=== PATIENT | female | born 1955 | race Caucasian/White ===

== ENCOUNTER 2016-12-20 19:05 | Inpatient (IN) | payer OTHER ==
[~2016-12-20] VITALS: Ht 175.3 cm; Wt 72.1 kg
[2016-12-20] VITALS (9 sets, daily range): BP systolic 131–181; BP diastolic 76–103; PULSE 107–120; RESP 16–20; TEMP 98.6–99.1; O2SAT 93–97
[2016-12-20] MEDS ORDERED: SODIUM CHLORIDE 0.9% FLUSH 5 ML FLUSH IVF PRN ×2 (19:30→21:30)
[2016-12-20 19:43] LABS: AUTOMATED NEUTROPHIL # 12.5 TH/MM3 (1.8-7.7); BASOPHIL # 0.1 TH/MM3 (0-0.2); BASOPHIL % 0.4 % (0.0-2.0); EOSINOPHIL % 0.1 % (0.0-4.0); HEMATOCRIT 41.8 % (35.0-46.0); HEMO FLAGS DIFF FINAL; LYMPH % 10.1 % (9.0-44.0); LYMPHOCYTE # 1.6 TH/MM3 (1.0-4.8); MEAN CELL VOLUME 89.2 FL (80.0-100.0); MEAN CORPUSCULAR HGB CONC 33.6 % (32.0-36.0); MONO % 7.9 % (0.0-8.0); NEUT % 81.5 % (16.0-70.0); PLATELET COUNT 311 TH/MM3 (150-450); RED BLOOD COUNT 4.69 MIL/MM3 (4.00-5.30); RED CELL DISTRIBUTION WIDTH 13.4 % (11.6-17.2); WHITE BLOOD COUNT 15.4 TH/MM3 (4.0-11.0)
[2016-12-20] MEDS ORDERED: ASPIRIN 325 MG TAB PO ONE (19:45)
[2016-12-20] MEDS ORDERED: NITROGLYCERIN 2% OINT 1 GM PACKET TOP ONE (19:45)
[2016-12-20 19:50] LABS: APTT (PATIENT) 26.2 SEC (24.3-30.1); INTERNATIONAL NORMALIZED RATIO 0.9 RATIO; PROTHROMBIN TIME - PATIENT 10.4 SEC (9.8-11.6)
[2016-12-20] MEDS ORDERED: SODIUM CHLORID 0.9% 500 ML INJ 500 ML IV ONE (20:00)
--- NOTE | 2016-12-20 20:12 | RADRPT ---
EXAM DATE/TIME: 12/20/2016 19:45 [facility] COMPARISON: No previous studies available for comparison. INDICATIONS : Chest pain. MEDICAL HISTORY : None. SURGICAL HISTORY : None. ENCOUNTER: Initial ACUITY: 1 day PAIN SCORE: 6/10 LOCATION: Bilateral chest FINDINGS: Sternotomy wires are noted. There are atelectatic changes at the bases but no consolidation or effusi on. Mild dextroscoliosis. Cardiomegaly. CONCLUSION: No acute disease. Marcelo Melgar MD on December 20, 2016 at 20:10 Board Certified Radiologist. This report was verified electronically.
--- NOTE | 2016-12-20 20:20 | PD ---
HPI Chief Complaint: chest pain Time Seen by Provider: 19:28 Travel History International Travel<30 days: No Contact w/Intl Traveler<30days: No Traveled to known affect area: No History of Present Illness HPI 61-year-old female presents with chest pain across her chest that started yesterday. She states she's had a little bit of a cough but denies other concurrent complaints. Quality is tightness. Severity is moderate. Pain is worse with deep breaths. She states it feels like her ribs are bruised even though she's never had that before. She states she is visiting from [place]. She states her last cardiac workup was about 4 years ago but she's not sure what she had other than she was watched in the hospital. She denies taking an aspirin at home. Quality is tightness. Severity is moderate. She denies modifying factors other than deep breaths and movement. Duration is since yesterday. PFSH Past Medical History Cardiovascular Problems: Yes (CABG x3) High Cholesterol: Yes Hypertension: Yes Tetanus Vaccination: Unknown Influenza Vaccination: No : 1 Para: 1 Past Surgical History Coronary Artery Bypass Graft: Yes (1998) Social History Alcohol Use: No Tobacco Use: No Substance Use: No Allergies-Medications (Allergen,Severity, Reaction): Coded Allergies: No Known Allergies (Unverified , 12/20/16) Reported Meds & Prescriptions Reported Meds & Active Scripts Active No Active Prescriptions or Reported Medications Review of Systems Except as stated in HPI: all other systems reviewed are Neg Physical Exam Narrative GENERAL: Well-nourished, well-developed patient. SKIN: Warm and dry. HEAD: Normocephalic and atraumatic. EYES: No injection or drainage. ENT: No nasal drainage noted. NECK: Supple, trachea midline. CARDIOVASCULAR: Tachycardic rate and regular rhythm RESPIRATORY: Breath sounds equal bilaterally. No accessory muscle use. GASTROINTESTINAL: Abdomen soft, non-tender, nondistended. EXTREMITIES: No edema. NEUROLOGICAL: Awake and alert. Motor and sensory grossly within normal limits. Normal speech. Data Data Last Documented VS Vital Signs Date Time Temp Pulse Resp B/P Pulse Ox O2 Delivery O2 Flow Rate FiO2 12/20/16 20:49 113 18 148/79 95 Room Air 12/20/16 19:06 98.6 Orders Electrocardiogram (12/20/16 19:25) Ckmb (Isoenzyme) Profile (12/20/16 19:25) Complete Blood Count With Diff (12/20/16 19:25) Comprehensive Metabolic Panel (12/20/16 19:25) Magnesium (Mg) (12/20/16 19:25) Prothrombin Time / Inr (Pt) (12/20/16 19:25) Act Partial Throm Time (Ptt) (12/20/16 19:25) Troponin I (12/20/16:25) Lipase (12/20/16:25) Chest, Single Ap (12/20/16 19:25) Ecg Monitoring (12/20/16:25) Bilateral Bp Monitoring (12/20/16:25) Iv Access Insert/Monitor (12/20/16:) Oximetry (12/20/16:25) Sodium Chloride 0.9% Flush (Ns Flush) (12/20/16 19:30) D-Dimer (12/20/16 19:30) Aspirin (Aspirin) (12/20/16 19:45) Nitroglycerin 2% Oint (Nitroglycerin 2% (12/20/16 19:45) Sodium Chlorid 0.9% 500 Ml Inj (Ns 500 M (12/20/16 20:00) Ct Pulmonary Angiogram (12/20/16 20:42) Iohexol 350 Inj (Omnipaque 350 Inj) (12/20/16 21:07) Heparin Infusion ISRAEL.Q1H (12/20/16 21:21) Heparin Inj (Heparin Inj) (12/20/16 21:30) Heparin Inj (Heparin Inj) (12/21/16 03:30) Heparin Inj (Heparin Inj) (12/21/16 03:30) Heparin-D5w Inj (Heparin-D5w Inj) (12/20/16 21:30) Cbc No Diff, Includes Plts (12/23/16 06:00) Act Partial Throm Time (Ptt) (12/21/16 04:21) Occult Blood (Hemoccult) Stool (12/20/16 21:21) Blood Culture (12/20/16 21:22) Sodium Chloride 0.9% Flush (Ns Flush) (12/20/16 21:30) Ceftriaxone Inj (Rocephin Inj) (12/20/16 21:30) Azithromycin Inj (Zithromax Inj) (12/20/16 21:30) Admit Order (Ed Use Only) (12/20/16 21:30) Labs Laboratory Tests Test 12/20/16 19:28 White Blood Count 15.4 TH/MM3 Red Blood Count 4.69 MIL/MM3 Hemoglobin 14.0 GM/DL Hematocrit 41.8 % Mean Corpuscular Volume 89.2 FL Mean Corpuscular Hemoglobin 30.0 PG Mean Corpuscular Hemoglobin 33.6 % Concent Red Cell Distribution Width 13.4 % Platelet Count 311 TH/MM3 Mean Platelet Volume 8.6 FL Neutrophils (%) (Auto) 81.5 % Lymphocytes (%) (Auto) 10.1 % Monocytes (%) (Auto) 7.9 % Eosinophils (%) (Auto) 0.1 % Basophils (%) (Auto) 0.4 % Neutrophils # (Auto) 12.5 TH/MM3 Lymphocytes # (Auto) 1.6 TH/MM3 Monocytes # (Auto) 1.2 TH/MM3 Eosinophils # (Auto) 0.0 TH/MM3 Basophils # (Auto) 0.1 TH/MM3 CBC Comment DIFF FINAL Differential Comment Prothrombin Time 10.4 SEC Prothromb Time International 0.9 RATIO Ratio Activated Partial 26.2 SEC Thromboplast Time D-Dimer Quantitative (PE/DVT) 2.69 MG/L FEU Sodium Level 136 MEQ/L Potassium Level 4.1 MEQ/L Chloride Level 99 MEQ/L Carbon Dioxide Level 26.5 MEQ/L Anion Gap 11 MEQ/L Blood Urea Nitrogen 11 MG/DL Creatinine 1.19 MG/DL Estimat Glomerular Filtration 46 ML/MIN Rate Random Glucose 112 MG/DL Calcium Level 9.0 MG/DL Magnesium Level 2.2 MG/DL Total Bilirubin 0.7 MG/DL Aspartate Amino Transf 23 U/L (AST/SGOT) Alanine Aminotransferase 19 U/L (ALT/SGPT) Alkaline Phosphatase 78 U/L Total Creatine Kinase 78 U/L Troponin I 0.02 NG/ML Total Protein 8.1 GM/DL Albumin 3.6 GM/DL Lipase 109 U/L MDM Medical Decision Making Medical Screen Exam Complete: Yes Emergency Medical Condition: Yes Medical Record Reviewed: Yes (past history confirmed) Interpretation(s) EKG is sinus tachycardia at 120, right bundle branch block, no STEMI criteria CBC & BMP Diagram 12/20/16 19:28 Last [address] Angiography 12/20/162041 Signed Impressions: Service Date/Time: Tuesday, December 20, 2016 20:55 - CONCLUSION: 1. Extensive bilateral pulmonary emboli are noted. 2. Patchy consolidation and small bilateral effusions. Marcelo Melgar MD Chest X-Ray 12/20/161924 Signed Impressions: Service Date/Time: Tuesday, December 20, 2016 19:45 - CONCLUSION: No acute disease. Marcelo Melgar MD Differential Diagnosis Cardiac, PE, musculoskeletal, gastritis Narrative Course Will check blood work, EKG, chest x-ray and dose with aspirin and nitroglycerin and reevaluate ed workup with extensive bilateral PEs, patient notes frequent traveling. DC nitroglycerin and order heparin and antibiotics for coverage of possible consolidation with elevated white count although this could be concurrent pulmonary infarct given history, patient updated Physician Communication Physician Communication dr hui agrees to admit in cic with heparin Diagnosis Primary Impression: Pulmonary embolism Qualified Code: I26.99 - Other acute pulmonary embolism without acute cor pulmonale Admitting Information Admitting Physician Requests: Admit Scripts No Active Prescriptions or Reported Meds Christin Henry MD Dec 20, 2016 20:20
[2016-12-20 20:29] LABS: ALKALINE PHOSPHATASE 78 U/L (45-117); ALT (GPT) 19 U/L (10-53); ANION GAP 11 MEQ/L (5-15); AST (GOT) 23 U/L (15-37); BICARBONATE 26.5 MEQ/L (21.0-32.0); BLOOD UREA NITROGEN 11 MG/DL (7-18); CHLORIDE 99 MEQ/L (98-107); GLOMERULAR FILTRATION RATE 46 ML/MIN (>89); MAGNESIUM 2.2 MG/DL (1.5-2.5); SODIUM (NA) 136 MEQ/L (136-145); TOTAL BILIRUBIN ADULT 0.7 MG/DL (0.2-1.0)
[2016-12-20 20:30] LABS: CREATINE KINASE 78 U/L (26-192); POTASSIUM 4.1 MEQ/L (3.5-5.1)
[2016-12-20] MEDS ORDERED: IOHEXOL 350 MG/ML 10 ML VIAL (for RAD DIAG) IV ONE (21:07)
--- NOTE | 2016-12-20 21:14 | RADRPT ---
EXAM DATE/TIME: 12/20/2016 20:55 [facility] COMPARISON: CHEST SINGLE AP, December 20, 2016, 19:45. INDICATIONS : Epigastric pain; rule out pulmonary embolus. IV CONTRAST: 74 cc Omnipaque 350 (iohexol) IV RADIATION DOSE: 10.97 CTDIvol (mGy) MEDICAL HISTORY : Hypertension. Hypercholesterolemia. Cardiovascular disease SURGICAL HISTORY : CABG ENCOUNTER: Initial ACUITY: 1 day PAIN SCALE: 5/10 LOCATION: chest TECHNIQUE: Volumetric scanning of the chest was performed using a pulmonary embolism protocol MIP images were re constructed. Using automated exposure control and adjustment of the mA and/or kV according to patien t size, radiation dose was kept as low as reasonably achievable to obtain optimal diagnostic quality images. FINDINGS: There are small bilateral pleural effusions and patchy consolidation within the lower lobes bilateral ly. Subcentimeter lymph nodes in the mediastinum and hilar regions are noted. There are filling defec ts within the left lower lobe and right lower lobe pulmonary arterial tree characteristic of bilatera l pulmonary emboli. There are thrombi also seen within the right upper lobe and left upper lobe pulmo nary arterial branches. Right middle lobe thrombus also present. Osseous structures are intact. CONCLUSION: 1. Extensive bilateral pulmonary emboli are noted. 2. Patchy consolidation and small bilateral effusions. Marcelo Melgar MD on December 20, 2016 at 21:11 Board Certified Radiologist. This report was verified electronically.
[2016-12-20] MEDS ORDERED: cefTRIAXone INJ 1,000 MG in SODIUM CHLORIDE 0.9% INJ 100 ML IV ONE (21:30)
[2016-12-20] MEDS ORDERED: HEPARIN SODIUM - IV 10,000 UNITS/10 ML VIAL IV ONE (21:30)
[2016-12-20] MEDS ORDERED: AZITHROMYCIN INJ 500 MG in SODIUM CHLOR 0.9% 250 ML INJ 250 ML IV ONE (21:30)
--- NOTE | 2016-12-20 21:36 | HHI.HP ---
[facility] Service [facility] ([place], [place])ists Primary Care Physician No Primary Care Physician Admission Diagnosis pe Diagnoses: (1) Pulmonary embolism Diagnosis: Principal (2) PNA (pneumonia) Diagnosis: Principal (3) Chest pain Diagnosis: Principal (4) Renal insufficiency Diagnosis: Principal Travel History International Travel<30 Days: No Contact w/Intl Traveler <30 Da: No Traveled to Known Affected Are: No History of Present Illness This is a 61-year-old female with a PMH of HTN, Hyperlipidemia and CAD s/p CABG who presented to the ER w/ complaints of chest pain x1 day w/ associated non- productive cough. Notes chest pain worse w/ inspiration. Denies fever, chills or sick contacts. No recent cardiac intervention, does not follow w/ Cardiology as outpatient. On arrival, BP 148/95, HR 120, O2 sat 94% on RA, Afebrile. WBC 15.4. Creatinine 1.19, no previous labs for comparison. Trop 0.02, EKG w/ no acute ischemia. D-dimer 2.69. CXR with no acute findings. CTA Pulm w/ extensive bilateral pulmonary emboli, patchy consolidation and small bilateral effusions. No h/o DVT/PE in the past. Does note recent travel to multiple cities via plane, visiting from [place]. No recent surgical intervention, no tobacco abuse. Started on Heparin gtt in ER. Review of Systems Except as stated in HPI: all other systems reviewed are Neg ROS: 14 point review of systems otherwise negative. Past Family Social History Past Medical History PMH: HTN, Hyperlipidemia and CAD s/p CABG Past Surgical History PAST SURGICAL HISTORY: CABG Allergies: Coded Allergies: No Known Allergies (Unverified , 12/20/16) Family History PAST FAMILY HISTORY: Reviewed. No h/o DM or CAD Social History PAST SOCIAL HISTORY: Negative for alcohol, tobacco or drugs. Physical Exam Vital Signs Vital Signs Date Time Temp Pulse Resp B/P Pulse Ox O2 Delivery O2 Flow Rate FiO2 12/20/16 20:49 113 18 148/79 95 Room Air 12/20/16 19:43 114 20 163/92 95 Room Air 12/20/16 19:27 115 12/20/16 19:25 118 18 166/79 97 Room Air 12/20/16 19:23 118 20 181/103 96 Room Air 12/20/16 19:18 18 12/20/16 19:06 98.6 120 16 148/95 94 Physical Exam PE: GENERAL: Pleasant middle-aged white female in no acute distress. HEENT: PERRLA, EOMI. No scleral icterus or conjunctival pallor. No lid lag or facial droop. CARDIOVASCULAR: Regular rate and rhythm. No obvious murmurs to auscultation. No chest tenderness to palpation. RESPIRATORY: No obvious rhonchi or wheezing. Clear to auscultation. Breath sounds equal bilaterally. GASTROINTESTINAL: Abdomen soft, non-tender, nondistended. BS normal. MUSCULOSKELETAL: Extremities without clubbing, cyanosis, or edema. No obvious deformities. NEUROLOGICAL: Awake, alert and oriented x4. No focal neurologic deficits. Moving both upper and lower extremities spontaneously. Laboratory Laboratory Tests Test 12/20/16 19:28 White Blood Count 15.4 Red Blood Count 4.69 Hemoglobin 14.0 Hematocrit 41.8 Mean Corpuscular Volume 89.2 Mean Corpuscular Hemoglobin 30.0 Mean Corpuscular Hemoglobin 33.6 Concent Red Cell Distribution Width 13.4 Platelet Count 311 Mean Platelet Volume 8.6 Neutrophils (%) (Auto) 81.5 Lymphocytes (%) (Auto) 10.1 Monocytes (%) (Auto) 7.9 Eosinophils (%) (Auto) 0.1 Basophils (%) (Auto) 0.4 Neutrophils # (Auto) 12.5 Lymphocytes # (Auto) 1.6 Monocytes # (Auto) 1.2 Eosinophils # (Auto) 0.0 Basophils # (Auto) 0.1 CBC Comment DIFF FINAL Differential Comment Prothrombin Time 10.4 Prothromb Time International 0.9 Ratio Activated Partial 26.2 Thromboplast Time D-Dimer Quantitative (PE/DVT) 2.69 Sodium Level 136 Potassium Level 4.1 Chloride Level 99 Carbon Dioxide Level 26.5 Anion Gap 11 Blood Urea Nitrogen 11 Creatinine 1.19 Estimat Glomerular Filtration 46 Rate Random Glucose 112 Calcium Level 9.0 Magnesium Level 2.2 Total Bilirubin 0.7 Aspartate Amino Transf 23 (AST/SGOT) Alanine Aminotransferase 19 (ALT/SGPT) Alkaline Phosphatase 78 Total Creatine Kinase 78 Troponin I 0.02 Total Protein 8.1 Albumin 3.6 Lipase 109 Result Diagram: 12/20/16192712/20/161927 Assessment and Plan Problem List: (1) Pulmonary embolism ICD Code: I26.99 Status: Acute (2) PNA (pneumonia) ICD Code: J18.9 Status: Acute (3) Chest pain ICD Code: R07.9 Status: Acute (4) Renal insufficiency ICD Code: N28.9 Status: Acute Assessment and Plan A/P: 1. Bilateral PE: c/o chest pain, non-productive cough x1 day, D-dimer elevated at 2.69, CXR w/ no acute findings, CTA Pulm w/ extensive bilateral PE, patchy consolidation and small bilateral effusions, images reviewed by me. Likely secondary to extensive travel recently, no other risk factors noted. Started on Heparin gtt in ER, will continue. Telemetry, DuoNeb prn/Symbicort for possible bronchospasm from PE, check Echo to eval for right hear strain. 2. PNA: CTA Pulm w/ bilateral patchy consolidation as above, s/p Rocephin/ Zithro in ER, will continue w/ IV Abx, repeat labs in am. 3. Chest Pain: Atypical. Pleuritic. Likely secondary to PNA/PE however h/o CAD, will r/o ACS. Initial trop negative, EKG w/ no acute ischemia. Check serial cardiac enzymes, NTG/Morphine prn. 4. Renal Insufficiency: Creatinine 1.19, no previous labs for comparison. Check U/a, IVF for hydration, repeat labs in am. 5. DVT Prophylaxis: Heparin gtt for acute PE 6. Social work for d/c planning as needed. 7. Case discussed w/ ER physician at length. Physician Certification 2 Midnight Certification Type: Admission for Inpatient Services Order for Inpatient Services The services are ordered in accordance with Medicare regulations or non- Medicare payer requirements, as applicable. In the case of services not specified as inpatient-only, they are appropriately provided as inpatient services in accordance with the 2-midnight benchmark. Estimated LOS (days): 2 days is the estimated time the patient will need to remain in the hospital, assuming treatment plan goals are met and no additional complications. Post-Hospital Plan: Not yet determined Problem Qualifiers (1) Pulmonary embolism: Qualified Code: I26.99 - Other acute pulmonary embolism without acute cor pulmonale Vanessa Shore MD Dec 20, 2016 21:36
[2016-12-20] MEDS: AZITHROMYCIN INJ 500 MG in SODIUM CHLOR 0.9% 250 ML INJ 250 ML IV SCH (21:41)
[2016-12-20] MEDS ORDERED: BISACODYL 10 MG SUPP PR PRN (21:45)
[2016-12-20] MEDS ORDERED: SODIUM CHLORIDE 0.9% FLUSH 5 ML FLUSH FLUSH PRN (21:45)
[2016-12-20] MEDS ORDERED: ACETAMINOPHEN 325 MG TAB PO PRN (21:45)
[2016-12-20] MEDS ORDERED: ONDANSETRON HCL 4 MG/2 ML VIAL IVP PRN (21:45)
[2016-12-20] MEDS ORDERED: RESP: ALBUTEROL 2.5 MG/IPRATROPIUM 0.5 MG NEB (PRN) NEB (21:45)
[2016-12-20] MEDS: MORPHINE SULFATE 4 MG/ML INJ IV PRN (22:15)
[2016-12-20] MEDS: ACETAMINOPHEN/HYDROcodone 325 MG/5 MG TAB PO PRN (22:16)
[2016-12-20] MEDS: BUDESONIDE-FORMOTEROL 160/4.5 MCG INHALER INH SCH (22:27)
[2016-12-20] MEDS: HEPARIN-D5W INJ 250 ML IV SCH (22:47)
[2016-12-21] VITALS (21 sets, daily range): BP systolic 126–144; BP diastolic 68–78; PULSE 92–115; RESP 20–30; TEMP 98–98.9; O2SAT 95–97
[2016-12-21] MEDS: ACETAMINOPHEN/HYDROcodone 325 MG/5 MG TAB PO PRN ×5 (02:26→22:08)
[2016-12-21] MEDS: MORPHINE SULFATE 4 MG/ML INJ IV PRN (02:32)
[2016-12-21] MEDS ORDERED: HEPARIN SODIUM - IV 10,000 UNITS/10 ML VIAL IV PRN (03:30)
[2016-12-21 06:16] LABS: AUTOMATED NEUTROPHIL # 12.7 TH/MM3 (1.8-7.7); BASOPHIL # 0.1 TH/MM3 (0-0.2); BASOPHIL % 0.5 % (0.0-2.0); EOSINOPHIL % 0.1 % (0.0-4.0); HEMATOCRIT 38.4 % (35.0-46.0); HEMO FLAGS DIFF FINAL; LYMPH % 11.1 % (9.0-44.0); LYMPHOCYTE # 1.8 TH/MM3 (1.0-4.8); MEAN CELL VOLUME 89.4 FL (80.0-100.0); MEAN CORPUSCULAR HEMOGLOBIN 29.8 PG (27.0-34.0); MEAN CORPUSCULAR HGB CONC 33.3 % (32.0-36.0); MONO % 8.3 % (0.0-8.0); PLATELET COUNT 251 TH/MM3 (150-450); RED BLOOD COUNT 4.29 MIL/MM3 (4.00-5.30); RED CELL DISTRIBUTION WIDTH 13.3 % (11.6-17.2); WHITE BLOOD COUNT 15.9 TH/MM3 (4.0-11.0)
[2016-12-21 06:47] LABS: ALKALINE PHOSPHATASE 70 U/L (45-117); ALT (GPT) 14 U/L (10-53); ANION GAP 10 MEQ/L (5-15); AST (GOT) 9 U/L (15-37); BICARBONATE 27.5 MEQ/L (21.0-32.0); BLOOD UREA NITROGEN 10 MG/DL (7-18); CHLORIDE 104 MEQ/L (98-107); GLOMERULAR FILTRATION RATE 60 ML/MIN (>89); POTASSIUM 4.1 MEQ/L (3.5-5.1); SODIUM (NA) 141 MEQ/L (136-145); TOTAL BILIRUBIN ADULT 0.4 MG/DL (0.2-1.0)
[2016-12-21] MEDS: BUDESONIDE-FORMOTEROL 160/4.5 MCG INHALER INH SCH ×2 (09:00→21:00)
[2016-12-21] MEDS: SODIUM CHLORIDE 0.9% FLUSH 5 ML FLUSH FLUSH SCH ×2 (09:00→22:09)
[2016-12-21 14:17] LABS: APTT (PATIENT) 31.4 SEC (24.3-30.1)
--- NOTE | 2016-12-21 16:52 | HHI.PR ---
Subjective Remarks Patient resting and sleeping comfortably in bed, on O2 nasal cannula She woke up to voice, denied chest pain or short of breath Objective Vitals Vital Signs Date Time Temp Pulse Resp B/P Pulse Ox O2 Delivery O2 Flow Rate FiO2 12/21/16 15:52 18 12/21/16 15:00 95 Nasal Cannula 1.50 12/21/16 13:00 102 12/21/16 12:00 98 12/21/16 11:00 97 12/21/16 10:00 108 12/21/16 09:00 97 12/21/16 08:00 96 12/21/16 07:39 96 Nasal Cannula 2.00 12/21/16 07:00 92 12/21/16 07:00 98.6 101 30 142/74 97 144/78 12/21/16 06:00 96 12/21/16 05:00 94 12/21/16 04:00 93 12/21/16 04:00 98.0 93 20 142/76 96 12/21/16 03:00 92 12/21/16 02:00 94 12/21/16 01:00 97 12/21/16 00:00 111 12/20/16 23:30 99.1 107 20 131/76 93 12/20/16 22:00 97 Nasal Cannula 2.00 12/20/16 21:45 108 17 148/82 97 Nasal Cannula 2 12/20/16 20:49 113 18 148/79 95 Room Air 12/20/16 19:43 114 20 163/92 95 Room Air 12/20/16 19:27 115 12/20/16 19:25 118 18 166/79 97 Room Air 12/20/16 19:23 118 20 181/103 96 Room Air 12/20/16 19:18 18 12/20/16 19:06 98.6 120 16 148/95 94 I/O 12/20/16 12/20/16 12/20/16 12/21/16 12/21/16 12/21/16 07:00 15:00 23:00 07:00 15:00 23:00 Intake Total 318 ml Output Total 300 ml Balance 18 ml Intake Oral 240 ml IV Total 78 ml Output Urine Total 300 ml Result Diagram: 12/21/1651912/21/[address] Angiography 12/20/162041 Signed Impressions: Service Date/Time: Tuesday, December 20, 2016 20:55 - CONCLUSION: 1. Extensive bilateral pulmonary emboli are noted. 2. Patchy consolidation and small bilateral effusions. Marcelo Melgar MD Chest X-Ray 12/20/161924 Signed Impressions: Service Date/Time: Tuesday, December 20, 2016 19:45 - CONCLUSION: No acute disease. Marcelo Melgar MD Objective Remarks GENERAL: This is a well-nourished, well-developed patient, in no apparent distress. SKIN: No rashes, warm and dry HEAD: Atraumatic. Normocephalic. EYES: Pupils equal round and reactive. Extraocular motions intact. No scleral icterus. ENT: Nose without bleeding, or drainage, Airway patent. NECK: Trachea midline. Supple CARDIOVASCULAR: Regular rate and rhythm without murmurs, gallops, or rubs. RESPIRATORY: Fair air entry bilaterally. No wheezes, rales, or rhonchi. GASTROINTESTINAL: Abdomen soft, non-tender, nondistended. Positive bowel sounds MUSCULOSKELETAL: Extremities without clubbing, cyanosis, or edema. Pedal pulses appreciated NEUROLOGICAL: Awake and alert. Moves all extremity. Normal speech.no focal neurological deficit A/P Problem List: (1) Pulmonary embolism ICD Code: I26.99 Status: Acute (2) PNA (pneumonia) ICD Code: J18.9 Status: Acute (3) Chest pain ICD Code: R07.9 Status: Acute (4) Renal insufficiency ICD Code: N28.9 Status: Acute Assessment and Plan - Bilateral PE mostly provoked by a long traveling: c/o chest pain, non- productive cough x1 day, CXR w/ no acute findings, CTA Pulm w/ extensive bilateral PE, patchy consolidation and small bilateral effusions Likely secondary to extensive travel recently, no other risk factors noted. Continue Heparin gtt Telemetry, DuoNeb prn/Symbicort for possible bronchospasm from PE, check Echo to eval for right hear strain. - PNA mostly CAP : CTA Pulm w/ bilateral patchy consolidation as above, continue Rocephin/Zithro , monitor clinical improvement - Chest Pain: Atypical. Pleuritic. Likely secondary to PNA/PE however h/o CAD, will r/o ACS. Initial trop negative, EKG w/ no acute ischemia. Check serial cardiac enzymes, NTG/Morphine prn. - KOLE: Creatinine improved 1.19-95, . U/a pending, IVF for hydration, personally reviewed BMP - DVT Prophylaxis: Heparin gtt for acute PE Problem Qualifiers (1) Pulmonary embolism: Qualified Code: I26.99 - Other acute pulmonary embolism without acute cor pulmonale Nani Harmon MD Dec 21, 2016 16:52
--- NOTE | 2016-12-21 17:59 | EKG ---
Date Performed: 12/20/2016 Time Performed: 19:22:53 PTAGE: 61 years EKG: SINUS TACHYCARDIA WITH SHORT LA INTERVAL POSSIBLE LEFT ATRIAL ENLARGEMENT MARKED LEFT AXIS DEVIATION INCOMPLETE RIGHT BUNDLE BRANCH BLOCK SEPTAL MYOCARDIAL INFARCTION MODERATE T-WAVE ABNORMALI TY, CONSIDER LATERAL ISCHEMIA CONSIDER ANTEROSEPTAL OH - AGE INDETERMINATE POOR R-WAVE PROGRESSION AB NORMAL ECG NO PREVIOUS TRACING DOCTOR: Geo Puentes Interpretating Date/Time 12/21/2016 17:59:05
[2016-12-21] MEDS: HEPARIN-D5W INJ 250 ML IV SCH (18:35)
[2016-12-21 21:33] LABS: APTT (PATIENT) 36.2 SEC (24.3-30.1)
[2016-12-21] MEDS: cefTRIAXone INJ 1,000 MG in SODIUM CHLORIDE 0.9% INJ 100 ML IV SCH (22:06)
[2016-12-21] MEDS: HEPARIN SODIUM - IV 10,000 UNITS/10 ML VIAL IV PRN (22:07)
[2016-12-22] VITALS (26 sets, daily range): BP systolic 131–155; BP diastolic 71–94; PULSE 91–112; RESP 18–20; TEMP 90–99.2; O2SAT 94–97
[2016-12-22] MEDS: ACETAMINOPHEN/HYDROcodone 325 MG/5 MG TAB PO PRN ×3 (04:35→18:25)
[2016-12-22 04:44] LABS: APTT (PATIENT) 47.3 SEC (24.3-30.1)
[2016-12-22] MEDS: BUDESONIDE-FORMOTEROL 160/4.5 MCG INHALER INH SCH ×2 (09:00→20:44)
[2016-12-22] MEDS: SODIUM CHLORIDE 0.9% FLUSH 5 ML FLUSH FLUSH SCH ×2 (09:18→20:50)
[2016-12-22] MEDS: MORPHINE SULFATE 4 MG/ML INJ IV PRN (09:40)
[2016-12-22] MEDS: HEPARIN-D5W INJ 250 ML IV SCH (11:42)
--- NOTE | 2016-12-22 12:40 | HHI.PR ---
Subjective Remarks Patient complaining of being fatigued and tired and short of breath She still on O2 oxygen, no fever or chills or chest pain Objective Vitals Vital Signs Date Time Temp Pulse Resp B/P Pulse Ox O2 Delivery O2 Flow Rate FiO2 12/22/16 12:04 104 12/22/16 11:58 95 Nasal Cannula 1.50 12/22/16 11:55 99.1 106 18 148/77 97 12/22/16 11:00 104 12/22/16 10:38 110 12/22/16 10:04 18 12/22/16 10:03 112 12/22/16 08:36 1.50 12/22/16 08:36 144/94 97 12/22/16 06:15 98.0 100 20 149/71 96 12/22/16 06:13 91 12/22/16 05:00 95 12/22/16 04:00 97 12/22/16 03:24 97 12/22/16 03:24 96 Nasal Cannula 1.50 12/22/16 02:01 91 12/22/16 01:00 95 12/22/16 00:00 96 Nasal Cannula 1.50 12/22/16 00:00 98.0 97 20 131/79 96 12/21/16 20:00 93 Nasal Cannula 1.50 12/21/16 20:00 98.4 113 20 138/74 96 12/21/16 18:00 115 12/21/16 17:00 100 12/21/16 16:00 105 12/21/16 15:52 18 12/21/16 15:00 98.9 108 21 126/70 95 128/71 12/21/16 15:00 95 Nasal Cannula 1.50 12/21/16 15:00 115 12/21/16 14:00 104 12/21/16 13:00 102 I/O 12/21/16 12/21/16 12/21/16 12/22/16 12/22/16 12/22/16 07:00 15:00 23:00 07:00 15:00 23:00 Intake Total 318 ml 1172 ml 652 ml Output Total 300 ml 1525 ml 1150 ml Balance 18 ml -353 ml -498 ml Intake Oral 240 ml 750 ml 480 ml IV Total 78 ml 422 ml 172 ml Output Urine Total 300 ml 1525 ml 1150 ml # Bowel Movements 0 Result Diagram: 12/21/1651912/21/16519 Objective Remarks GENERAL: This is a well-nourished, well-developed patient, in no apparent distress. SKIN: No rashes, warm and dry HEAD: Atraumatic. Normocephalic. EYES: Pupils equal round and reactive. Extraocular motions intact. No scleral icterus. ENT: Nose without bleeding, or drainage, Airway patent. NECK: Trachea midline. Supple CARDIOVASCULAR: Regular rate and rhythm without murmurs, gallops, or rubs. RESPIRATORY: Fair air entry bilaterally. No wheezes, rales, or rhonchi. GASTROINTESTINAL: Abdomen soft, non-tender, nondistended. Positive bowel sounds MUSCULOSKELETAL: Extremities without clubbing, cyanosis, or edema. Pedal pulses appreciated NEUROLOGICAL: Awake and alert. Moves all extremity. Normal speech.no focal neurological deficit A/P Problem List: (1) Pulmonary embolism ICD Code: I26.99 Status: Acute (2) PNA (pneumonia) ICD Code: J18.9 Status: Acute (3) Chest pain ICD Code: R07.9 Status: Acute (4) Renal insufficiency ICD Code: N28.9 Status: Acute Assessment and Plan - Bilateral PE mostly provoked by a long traveling: c/o chest pain, non- productive cough x1 day, CXR w/ no acute findings, CTA Pulm w/ extensive bilateral PE, patchy consolidation and small bilateral effusions Likely secondary to extensive travel recently, no other risk factors noted. 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 precipitated by the bilateral large PE, starting SEDRICK inhibitor low dose, consult cardiology - PNA mostly CAP : CTA Pulm w/ bilateral patchy consolidation as above, continue Rocephin/Zithro , monitor clinical improvement - Chest Pain: Atypical. Pleuritic. Likely secondary to PNA/PE however h/o CAD, will r/o ACS. Initial trop negative, EKG w/ no acute ischemia. Check serial cardiac enzymes, NTG/Morphine prn. - KOLE: Creatinine improved 1.19-95, . U/a pending, IVF for hydration, personally reviewed BMP - DVT Prophylaxis: Heparin gtt for acute PE Problem Qualifiers (1) Pulmonary embolism: Qualified Code: I26.99 - Other acute pulmonary embolism without acute cor pulmonale Nani Harmon MD Dec 22, 2016 12:39
[2016-12-22 13:50] LABS: APTT (PATIENT) 34.4 SEC (24.3-30.1)
--- NOTE | 2016-12-22 15:45 | EC ---
Study Study Date:12/22/2016 STUDY CONCLUSIONS SUMMARY - Left ventricle: The cavity size was normal. Wall thickness was normal. Systolic function was severely reduced. The estimated ejection fraction was in the range of 25% to 30%. - Aortic valve: Trace regurgitation. Valve area: 1.86cm^2(VTI). Valve area: 1.85cm^2 (Vmax). If LV function is below 40, please consider prescribing an ACEI or ARB or document rationale for non-use. PROCEDURE DATA STUDY STATUS: Elective. Procedure: Transthoracic echocardiography. Image quality was suboptimal. Scanning was performed from the parasternal, apical, and subcostal acoustic windows. Study completion: The patient tolerated the procedure well. Transthoracic echocardiography. M-mode, complete 2D, complete spectral Doppler, and color Doppler. Height: Height: 69in. Weight: Weight: 159.7lb. Body mass index: BMI: 23.6kg/m^2. Body surface area: BSA: 1.88m^2. Patient status: Inpatient. CARDIAC ANATOMY LEFT VENTRICLE: The cavity size was normal. Wall thickness was normal. Systolic function was severely reduced. The estimated ejection fraction was in the range of 25% to 30%. Images were inadequate for LV wall motion assessment. AORTIC VALVE: Trileaflet; mildly thickened leaflets. Doppler: Transvalvular velocity was within the normal range. There was no stenosis. Trace regurgitation. Valve area: 1.86cm^2(VTI). Indexed valve area: 0.99cm^2/m^2 (VTI). Valve area: 1.85cm^2 (Vmax). Indexed valve area: 0.98cm^2/m^2 (Vmax). Mean gradient: 3mm Hg (S). AORTA: Aortic root: The aortic root was normal in size. MITRAL VALVE: Structurally normal valve. Doppler: Transvalvular velocity was within the normal range. There was no evidence for stenosis. Trace regurgitation. LEFT ATRIUM: The atrium was normal in size. RIGHT VENTRICLE: The cavity size was normal. Wall thickness was normal. PULMONIC VALVE: Doppler: Transvalvular velocity was within the normal range. There was no evidence for stenosis. No regurgitation. TRICUSPID VALVE: Structurally normal valve. Doppler: Transvalvular velocity was within the normal range. Trace regurgitation. PULMONARY ARTERY: The main pulmonary artery was normal-sized. Systolic pressure was within the normal range. RIGHT ATRIUM: The atrium was normal in size. PERICARDIUM: There was no pericardial effusion. SYSTEMIC VEINS: Inferior vena cava: The vessel was normal in size. Patient weight: 159.7lb _Ejection fraction:_ 65-75% _Fractional shortening:_ 32% up to 5Kg 5-11.5Kg 11.6-22.9Kg 23-45Kg 45-57Kg Aortic Root 7-13 <17 13-22 17-27 17-27 LA diam 6-13 <23 24-38 33-47 37-40 RVID 10-17 7-15 7-15 7-18 8-17 LVIDd 12-22 <32 24-38 33-47 37-40 LVPW 2-4 3-6 5-7 6-8 7-8 IVS 2-4 3-6 5-7 6-8 7-8 BASIC MEASUREMENTS ADULT NORMAL Left ventricle LV internal dimension, ED, chordal *54.7 mm 43-52 level, PLAX LV internal dimension, ES, chordal *45.9 mm 23-38 level, PLAX Fractional shortening, chordal level, *16 % >29 PLAX LV posterior wall thickness, ED 7.96 mm IVS/LVPW ratio, ED 0.99 <1.3 Ventricular septum Septal thickness, ED 7.87 mm Aortic valve Leaflet separation 20 mm 15-26 Aorta Root diameter, ED 29 mm Left atrium Anterior-posterior dimension 39 mm Anterior-posterior dimension index 2.07 cm/m^2 <2.2 BASIC MEASUREMENTS ADULT NORMAL Aortic valve Leaflet separation 20 mm 15-26 DOPPLER MEASUREMENTS ADULT NORMAL Aortic valve Peak velocity, S 108 cm/s Mean velocity, S 80.8 cm/s VTI, S 15.3 cm Mean gradient, S 3 mm Hg Valve area, VTI 1.86 cm^2 Valve area index, VTI 0.99 cm^2/m^2 Valve area, Vmax 1.85 cm^2 Valve area index, Vmax 0.98 cm^2/m^2 Mitral valve Peak E-wave velocity 68 cm/s Peak A-wave velocity 99.8 cm/s Deceleration time *134 ms 150-230 Peak E/A ratio 0.7 Pulmonic valve Peak velocity, S 75 cm/s LEGEND: Mean values are shown as u=mean value. Asterisk (*) chin values outside specified normal range. Prepared and signed by Edmund Aleman [id number]
[2016-12-22 17:03] LABS: BLOOD, URINE NEG (NEG); GLUCOSE,URINE 1000 mg/dL (NEG); KETONE, URINE NEG (NEG); NITRITE,URINE NEG (NEG); SQUAMOUS EPITHELIAL CELL URINE <1 /hpf (0-5); URINE COLOR LIGHT-YELLOW (YELLW/STRAW)
[2016-12-22 17:04] LABS: COMMENT (UR) CULT NOT INDICATED; CULTURE IF INDICATED CULT NOT INDICATED
[2016-12-22] MEDS: RAMIPRIL 1.25 MG CAP PO SCH (18:25)
[2016-12-22 20:04] LABS: APTT (PATIENT) 37.9 SEC (24.3-30.1)
[2016-12-22] MEDS: AZITHROMYCIN INJ 500 MG in SODIUM CHLOR 0.9% 250 ML INJ 250 ML IV SCH (20:43)
[2016-12-22] MEDS: HEPARIN SODIUM - IV 10,000 UNITS/10 ML VIAL IV PRN (20:50)
[2016-12-22] MEDS ORDERED: CARVEDILOL 3.125 MG TAB PO SCH (21:00)
[2016-12-22] MEDS: cefTRIAXone INJ 1,000 MG in SODIUM CHLORIDE 0.9% INJ 100 ML IV SCH (21:55)
[2016-12-23] VITALS (32 sets, daily range): BP systolic 137–160; BP diastolic 77–92; PULSE 90–116; RESP 18–22; TEMP 98.5–99.6; O2SAT 93–97
[2016-12-23] MEDS: HEPARIN-D5W INJ 250 ML IV SCH ×2 (01:13→17:21)
[2016-12-23] MEDS: ACETAMINOPHEN/HYDROcodone 325 MG/5 MG TAB PO PRN (02:05)
[2016-12-23 02:39] LABS: AUTOMATED NEUTROPHIL # 8.1 TH/MM3 (1.8-7.7); BASOPHIL # 0.1 TH/MM3 (0-0.2); BASOPHIL % 0.5 % (0.0-2.0); EOSINOPHIL # 0.1 TH/MM3 (0-0.4); EOSINOPHIL % 0.6 % (0.0-4.0); HEMATOCRIT 34.6 % (35.0-46.0); HEMO FLAGS DIFF FINAL; LYMPH % 16.5 % (9.0-44.0); LYMPHOCYTE # 1.8 TH/MM3 (1.0-4.8); MEAN CELL VOLUME 88.4 FL (80.0-100.0); MEAN CORPUSCULAR HEMOGLOBIN 30.5 PG (27.0-34.0); MEAN CORPUSCULAR HGB CONC 34.5 % (32.0-36.0); MONO % 8.1 % (0.0-8.0); NEUT % 74.3 % (16.0-70.0); PLATELET COUNT 246 TH/MM3 (150-450); RED BLOOD COUNT 3.92 MIL/MM3 (4.00-5.30); RED CELL DISTRIBUTION WIDTH 13.1 % (11.6-17.2); WHITE BLOOD COUNT 10.9 TH/MM3 (4.0-11.0)
[2016-12-23 02:49] LABS: APTT (PATIENT) 44.5 SEC (24.3-30.1)
[2016-12-23 03:04] LABS: BICARBONATE 27.8 MEQ/L (21.0-32.0); POTASSIUM 4.3 MEQ/L (3.5-5.1)
--- NOTE | 2016-12-23 08:41 | MB ---
cc: Tammy DATE OF CONSULTATION: 12/22/2016 REASON FOR CONSULTATION Consult requested by POPPY cruz for evaluation of extensive pulmonary embolism. HISTORY OF PRESENT ILLNESS Desi is a 61-year-old female. She is visiting the area from [place]. She has a history of hypertension, coronary artery disease and hypercholesterolemia. The patient came into the emergency room complaining of pleuritic chest pain and shortness of breath with dry cough. She had further workup which includes CT angiogram of the chest which showed extensive bilateral pulmonary embolism. The patient was started on Hyd[place] and she is admitted to the hospital. I have been asked to see the patient for pulmonary embolism. The patient denies any previous history of thromboembolic disease. The patient stated that she has been riding in the car for the last 4 weeks. She had two dogs who were in the car with her. She states that she sleeps in the car. She went to [place] and she had a hotel for maybe 1 week. But in the last 4 weeks only 1 week she stayed in the hotel but at 3 weeks she spent in the car as it is difficult for her to get a hotel with the dogs. She denies any family history of thromboembolic disease. The patient states that her breathing has improved since she has been on heparin. She had an echocardiogram which did not show any right-sided heart strain but it showed decreased left ventricular ejection fraction of 25-30%. Cardiology has been consulted. The patient denies any swelling of both lower legs. PAST MEDICAL HISTORY 1. Hypertension. 2. Hyperlipidemia. 3. Coronary artery disease. PAST SURGICAL HISTORY Coronary artery bypass surgery. ALLERGIES None. MEDICATIONS 1. Ramipril. 2. Symbicort. 3. Coreg. 4. Rocephin. 5. Azithromycin. 6. Heparin. FAMILY HISTORY No family history of thromboembolic disease. SOCIAL HISTORY The patient does not smoke cigarettes, does not drink alcohol. She is visiting from [place]. PHYSICAL EXAMINATION GENERAL: This is a well-developed, well-nourished white female in mild respiratory distress. VITAL SIGNS: Temperature 90, heart rate 105. Blood pressure 147/83. HEENT: PERRLA, EOMI, anicteric. No oral lesions are noted. NECK: Neck is supple. There is no cervical, supraclavicular or axillary lymphadenopathy noted. LUNGS: Clear. No wheezing, rhonchi or rales. HEART: Heart is regular rate and rhythm. ABDOMEN: Abdomen is soft, nontender. No hepatosplenomegaly. EXTREMITIES: No pedal edema. NEUROLOGY: Awake, alert, oriented x3. SKIN: No significant lesions are noted. ASSESSMENT 1. Provoked pulmonary embolism due to extensive traveling in the car for the last 4 weeks and staying in the car even during the night for sleep. 2. Congestive heart failure with ejection fraction 25-30%. 3. Coronary artery disease status post coronary artery bypass surgery. 4. Hypercholesterolemia. 5. Hypertension. PLAN I have reviewed her available records and I have discussed with the patient regarding the extensive pulmonary embolism. She does not have any saddle embolism. Her breathing has improved since she is been on heparin. My recommendation is to continue heparin until clinically she is better and then will switch her over to Eliquis. I will get the Doppler ultrasound of both lower legs to evaluate for any DVTs. The patient would need anticoagulation for at least a year given that she has extensive pulmonary embolism. If her shortness of breath gets worse then we will consult interventional radiologist for thrombolytics. The echocardiogram does not show any right heart strain. However she has reduce LVEF. Cardiology input is pending. The patient has asked several questions and these were answered to her satisfaction. Thank you for asking my opinion. Sandy Diaz MD /JERMAINE /10:23 PM /8:23 AM KAM
[2016-12-23] MEDS: SODIUM CHLORIDE 0.9% FLUSH 5 ML FLUSH FLUSH SCH ×2 (09:11→21:04)
[2016-12-23] MEDS: RAMIPRIL 1.25 MG CAP PO SCH (09:11)
[2016-12-23] MEDS: BUDESONIDE-FORMOTEROL 160/4.5 MCG INHALER INH SCH ×2 (09:12→21:00)
--- NOTE | 2016-12-23 11:03 | RADRPT ---
EXAM DATE/TIME: 12/23/2016 09:59 [facility] COMPARISON: No previous studies available for comparison. INDICATIONS : Pulmonary embolism. MEDICAL HISTORY : Hypercholesterolemia. Hypertension. SURGICAL HISTORY : CABG ENCOUNTER: Initial ACUITY: 4 - 6 days PAIN SCORE: 0/10 LOCATION: Bilateral leg. TECHNIQUE: Venous ultrasound of the left and right leg was performed from the inguinal ligament to the proximal calf. Real-time, color Doppler and spectral tracing, compression and augmentation techniques were us ed. FINDINGS: RIGHT LEG: There is normal compressibility of the deep venous system from the inguinal region to the proximal ca lf. No echogenic clot is seen in the lumen of the common femoral, femoral, popliteal, and posterior tibial veins. There is a normal response of the venous system to proximal and distal augmentation an d respiration. Viscous flow. LEFT LEG: There is normal compressibility of the deep venous system from the inguinal region to the proximal ca lf. No echogenic clot is seen in the lumen of the common femoral, femoral, popliteal, and posterior tibial veins. There is a normal response of the venous system to proximal and distal augmentation an d respiration. Viscous flow. CONCLUSION: No DVT in either lower extremity. Jose Mahmood MD on December 23, 2016 at 11:01 Board Certified Radiologist. This report was verified electronically.
--- NOTE | 2016-12-23 11:45 | PD.ONC.PN ---
Subjective Subjective Remarks Afebrile overnight. Patient feels stronger today. She states she feels a slight improvement in her dyspnea and pain. Objective Data Date Time Temp Pulse Resp B/P Pulse Ox O2 Delivery O2 Flow Rate FiO2 12/23/16 11:39 98.9 104 20 144/77 93 12/23/16 11:20 Nasal Cannula 1.00 12/23/16 10:00 102 12/23/16 09:34 102 12/23/16 09:30 95 Nasal Cannula 1.50 12/23/16 09:00 90 12/23/16 08:49 95 Nasal Cannula 1.00 12/23/16 08:30 92 12/23/16 08:28 99.3 95 18 137/89 95 12/23/16 08:00 94 12/23/16 08:00 92 12/23/16 07:30 95 12/23/16 07:00 95 12/23/16 06:21 95 12/23/16 05:32 90 12/23/16 04:00 95 1.00 12/23/16 04:00 92 12/23/16 04:00 99.0 100 19 152/84 95 12/23/16 03:00 93 12/23/16 02:00 90 12/23/16 01:00 91 12/23/16 00:56 96 12/22/16 23:37 94 Nasal Cannula 2.00 12/22/16 23:01 97.9 102 20 155/92 94 12/22/16 23:00 104 12/22/16 22:00 110 12/22/16 21:00 104 12/22/16 20:00 100 12/22/16 19:15 96 Nasal Cannula 2.00 12/22/16 19:06 96 Nasal Cannula 1.50 12/22/16 19:00 94 12/22/16 19:00 99.2 99 20 147/82 96 12/22/16 18:17 91 12/22/16 17:08 110 12/22/16 16:04 18 12/22/16 15:50 105 12/22/16 15:50 96 Nasal Cannula 1.50 12/22/16 15:50 90.0 105 19 147/83 96 12/22/16 14:22 107 12/22/16 13:11 109 12/22/16 12:04 104 12/22/16 11:58 95 Nasal Cannula 1.50 12/22/16 11:55 99.1 106 18 148/77 97 12/23/16 12/23/16 12/23/16 06:59 14:59 22:59 Intake Total 1034 ml Output Total 1000 ml Balance 34 ml Result Diagram: 12/23/1622612/23/16226 Laboratory Results Laboratory Tests Test 12/22/16 12/22/16 12/22/16 12/23/16 13:09 16:29 19:39 02:27 Activated Partial 34.4 SEC 37.9 SEC 44.5 SEC Thromboplast Time Urine Color LIGHT-YELLOW Urine Turbidity CLEAR Urine pH 6.0 Urine Specific [place] 1.013 Urine Protein TRACE mg/dL Urine Glucose (UA) 1000 mg/dL Urine Ketones NEG mg/dL Urine Occult Blood NEG Urine Nitrite NEG Urine Bilirubin NEG Urine Urobilinogen LESS THAN 2.0 MG/DL Urine Leukocyte Esterase NEG Urine WBC 1 /hpf Urine Squamous Epithelial <1 /hpf Cells Microscopic Urinalysis Comment CULT NOT INDICATED White Blood Count 10.9 TH/MM3 Red Blood Count 3.92 MIL/MM3 Hemoglobin 12.0 GM/DL Hematocrit 34.6 % Mean Corpuscular Volume 88.4 FL Mean Corpuscular Hemoglobin 30.5 PG Mean Corpuscular Hemoglobin 34.5 % Concent Red Cell Distribution Width 13.1 % Platelet Count 246 TH/MM3 Mean Platelet Volume 8.6 FL Neutrophils (%) (Auto) 74.3 % Lymphocytes (%) (Auto) 16.5 % Monocytes (%) (Auto) 8.1 % Eosinophils (%) (Auto) 0.6 % Basophils (%) (Auto) 0.5 % Neutrophils # (Auto) 8.1 TH/MM3 Lymphocytes # (Auto) 1.8 TH/MM3 Monocytes # (Auto) 0.9 TH/MM3 Eosinophils # (Auto) 0.1 TH/MM3 Basophils # (Auto) 0.1 TH/MM3 CBC Comment DIFF FINAL Differential Comment Sodium Level 139 MEQ/L Potassium Level 4.3 MEQ/L Chloride Level 104 MEQ/L Carbon Dioxide Level 27.8 MEQ/L Anion Gap 7 MEQ/L Blood Urea Nitrogen 10 MG/DL Creatinine 0.88 MG/DL Estimat Glomerular Filtration 65 ML/MIN Rate Random Glucose 128 MG/DL Calcium Level 8.6 MG/DL Culture Results Microbiology Date/Time Procedure Status Source Growth 12/20/16 21:52 Aerobic Blood Culture - Preliminary Resulted Blood Peripheral NO GROWTH IN 3 DAYS 12/20/16 21:52 Anaerobic Blood Culture - Preliminary Resulted Blood Peripheral NO GROWTH IN 3 DAYS 12/23/16 11:06 Stool Occult Blood (LIS) Received Stool Stool Pending Imaging Studies Last 24 hours Impressions Lower Extremity Ultrasound 12/23/16 0000 Signed Impressions: Service Date/Time: Friday, December 23, 2016 09:59 - CONCLUSION: No DVT in either lower extremity. Jose Mahmood MD Administered Medications Medications (Trade) Dose Ordered Sig/Darrian Route PRN Reason Start Time Stop Time Status Last Admin Dose Admin Heparin Sodium (Porcine) 2500 units 2,500 units UNSCH PRN IV APTT 25 TO 39 12/21/16 03:30 12/22/16 20:50 Heparin Sodium/ Dextrose 250 ml @ 0 mls/hr TITRATE IV 12/20/16 21:30 12/23/16 01:13 Ceftriaxone Sodium 1000 mg/ Sodium Chloride 100 ml @ 200 mls/hr Q24H IV 12/21/16 22:00 12/22/16 21:55 Azithromycin/ Sodium Chloride (Zithromax Inj/ NS 250 ml Inj) 250 ml @ 250 mls/hr Q24H IV 12/21/16 21:00 12/22/16 20:43 Budesonide/ Formoterol Fumarate (Symbicort 160-4.5 Inh) 2 puff Q12HR INH 12/20/16 21:45 12/23/16 09:12 IV Flush (NS Flush) 2 ml BID FLUSH 12/21/16 09:00 12/23/16 09:11 Acetaminophen/ Hydrocodone Bitart ([place] 5-325 Mg) 1 tab Q4H PRN PO PAIN SCALE 3 TO 5 12/20/16 21:45 12/23/16 02:05 Morphine Sulfate (Morphine Inj) 2 mg Q3H PRN IV Pain 6-10 12/20/16 21:45 12/22/16 09:40 Ramipril (Altace) 1.25 mg DAILY PO 12/22/16 17:15 12/23/16 09:11 Objective Remarks GENERAL: Young woman, sitting up in bed in [facility]. SKIN: Warm and dry. HEAD: Normocephalic. EYES: No scleral icterus. No injection or drainage. NECK: Supple, trachea midline. CARDIOVASCULAR: +S1/S2, tachy RESPIRATORY: Breath sounds equal bilaterally. No accessory muscle use. GASTROINTESTINAL: Abdomen soft, non-tender, nondistended. EXTREMITIES: No cyanosis NEUROLOGICAL: No obvious focal deficit. Awake, alert, and oriented x3. Assessment/Plan Problem List: (1) Pulmonary embolism Status: Acute Plan: 12/23: continue heparin gtt until clinically improved. will then begin Eliquis. U/S, LE shows no DVT --will need anticoagulation x 1 year --If her shortness of breath gets worse then we will consult interventional radiologist for thrombolytics. Assessment 61y/o female with provoked PE. h/o CHF, EF 25-30% --CAD s/p CABG --h/o hypercholesterolemia --h/o HTN Attending Statement less sob doppler no dvt legs. continue heparin The exam, history, and the medical decision-making described in the above note were completed with the assistance of the mid-level provider. I reviewed and agree with the findings presented. I attest that I had a [id number] encounter with the patient on the same day, and personally performed and documented my assessment and findings in the medical record. Problem Qualifiers (1) Pulmonary embolism: Qualified Code: I26.99 - Other acute pulmonary embolism without acute cor pulmonale Chaya Muñoz Dec 23, 2016 11:45 Deo Diaz MD Dec 23, 2016 22:35
[2016-12-23 11:56] LABS: APTT (PATIENT) 36.2 SEC (24.3-30.1)
[2016-12-23] MEDS: HEPARIN SODIUM - IV 10,000 UNITS/10 ML VIAL IV PRN ×2 (12:08→21:05)
--- NOTE | 2016-12-23 16:00 | HHI.PR ---
Subjective Remarks Still feeling fatigued Depending on oxygen Afebrile, mild chest tightness Seen by supervisor stitching department recommending continuing current management, if symptoms to worsen may need thrombectomy Objective Vitals Vital Signs Date Time Temp Pulse Resp B/P Pulse Ox O2 Delivery O2 Flow Rate FiO2 12/23/16 14:00 106 12/23/16 13:19 105 12/23/16 12:50 99.4 104 22 157/88 95 12/23/16 12:00 100 12/23/16 11:39 98.9 104 20 144/77 93 12/23/16 11:20 Nasal Cannula 1.00 12/23/16 11:00 116 12/23/16 10:00 102 12/23/16 09:34 102 12/23/16 09:30 95 Nasal Cannula 1.50 12/23/16 09:00 90 12/23/16 08:49 95 Nasal Cannula 1.00 12/23/16 08:30 92 12/23/16 08:28 99.3 95 18 137/89 95 12/23/16 08:00 94 12/23/16 08:00 92 12/23/16 07:30 95 12/23/16 07:00 95 12/23/16 06:21 95 12/23/16 05:32 90 12/23/16 04:00 95 1.00 12/23/16 04:00 92 12/23/16 04:00 99.0 100 19 152/84 95 12/23/16 03:00 93 12/23/16 02:00 90 12/23/16 01:00 91 12/23/16 00:56 96 12/22/16 23:37 94 Nasal Cannula 2.00 12/22/16 23:01 97.9 102 20 155/92 94 12/22/16 23:00 104 12/22/16 22:00 110 12/22/16 21:00 104 12/22/16 20:00 100 12/22/16 19:15 96 Nasal Cannula 2.00 12/22/16 19:06 96 Nasal Cannula 1.50 12/22/16 19:00 94 12/22/16 19:00 99.2 99 20 147/82 96 12/22/16 18:17 91 12/22/16 17:08 110 12/22/16 16:04 18 I/O 12/22/16 12/22/16 12/22/16 12/23/16 12/23/16 12/23/16 07:00 15:00 23:00 07:00 15:00 23:00 Intake Total 652 ml 216 ml 1034 ml Output Total 1150 ml 2000 ml 1000 ml Balance -498 ml -1784 ml 34 ml Intake Oral 480 ml 480 ml IV Total 172 ml 216 ml 554 ml Output Urine Total 1150 ml 2000 ml 1000 ml Result Diagram: 12/23/1622612/23/16226 Objective Remarks GENERAL: This is a well-nourished, well-developed patient, in no apparent distress. SKIN: No rashes, warm and dry HEAD: Atraumatic. Normocephalic. EYES: Pupils equal round and reactive. Extraocular motions intact. No scleral icterus. ENT: Nose without bleeding, or drainage, Airway patent. NECK: Trachea midline. Supple CARDIOVASCULAR: Regular rate and rhythm without murmurs, gallops, or rubs. RESPIRATORY: Fair air entry bilaterally. No wheezes, rales, or rhonchi. GASTROINTESTINAL: Abdomen soft, non-tender, nondistended. Positive bowel sounds MUSCULOSKELETAL: Extremities without clubbing, cyanosis, or edema. Pedal pulses appreciated NEUROLOGICAL: Awake and alert. Moves all extremity. Normal speech.no focal neurological deficit A/P Problem List: (1) Pulmonary embolism ICD Code: I26.99 Status: Acute (2) PNA (pneumonia) ICD Code: J18.9 Status: Acute (3) Chest pain ICD Code: R07.9 Status: Acute (4) Renal insufficiency ICD Code: N28.9 Status: Acute Assessment and Plan 12/23/16: Continue current care, appreciate hematology recommendation, continue anticoagulation until symptom improved and switch to a liquids she will need one year, if symptom worsened or hemodynamically unstable will consider IR for thrombolytics, awaiting cardiology consult Psychiatry: - Bilateral PE mostly provoked by a long traveling: c/o chest pain, non- productive cough x1 day, CXR w/ no acute findings, CTA Pulm w/ extensive bilateral PE, patchy consolidation and small bilateral effusions Likely secondary to extensive travel recently, no other risk factors noted. 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 precipitated by the bilateral large PE, starting SEDRICK inhibitor low dose, consult cardiology - PNA mostly CAP : CTA Pulm w/ bilateral patchy consolidation as above, continue Rocephin/Zithro , monitor clinical improvement - Chest Pain: Atypical. Pleuritic. Likely secondary to PNA/PE however h/o CAD, will r/o ACS. Initial trop negative, EKG w/ no acute ischemia. Check serial cardiac enzymes, NTG/Morphine prn. - KOLE: Creatinine improved 1.19-95, . U/a pending, IVF for hydration, personally reviewed BMP - DVT Prophylaxis: Heparin gtt for acute PE Problem Qualifiers (1) Pulmonary embolism: Qualified Code: I26.99 - Other acute pulmonary embolism without acute cor pulmonale Nani Harmon MD Dec 23, 2016 16:00
[2016-12-23 19:04] LABS: APTT (PATIENT) 37.5 SEC (24.3-30.1)
[2016-12-23] MEDS: AZITHROMYCIN INJ 500 MG in SODIUM CHLOR 0.9% 250 ML INJ 250 ML IV SCH (21:05)
[2016-12-23] MEDS: cefTRIAXone INJ 1,000 MG in SODIUM CHLORIDE 0.9% INJ 100 ML IV SCH (22:32)
[2016-12-24] VITALS (24 sets, daily range): BP systolic 140–149; BP diastolic 76–90; PULSE 60–106; RESP 16–19; TEMP 97.2–98.5; O2SAT 93–99
[2016-12-24 02:46] LABS: APTT (PATIENT) 50.2 SEC (24.3-30.1)
[2016-12-24] MEDS: HEPARIN-D5W INJ 250 ML IV SCH (05:13)
[2016-12-24] MEDS: SODIUM CHLORIDE 0.9% FLUSH 5 ML FLUSH FLUSH SCH ×2 (09:00→19:38)
[2016-12-24] MEDS: RAMIPRIL 1.25 MG CAP PO SCH (09:04)
[2016-12-24] MEDS: BUDESONIDE-FORMOTEROL 160/4.5 MCG INHALER INH SCH ×2 (09:04→19:38)
[2016-12-24 09:32] LABS: APTT (PATIENT) 41.8 SEC (24.3-30.1)
--- NOTE | 2016-12-24 12:37 | PD.ONC.PN ---
Subjective Subjective Remarks Afebrile overnight. Pt sitting up in chair at bedside watching TV. She states her breathing is much improved. She has no pain. No bleeding. She is asking questions about the anticoagulation. Objective Data Date Time Temp Pulse Resp B/P Pulse Ox O2 Delivery O2 Flow Rate FiO2 12/24/16 12:00 104 12/24/16 11:00 98.5 104 18 142/89 93 12/24/16 11:00 92 Nasal Cannula 2.00 12/24/16 11:00 92 12/24/16 08:00 88 12/24/16 07:00 94 12/24/16 07:00 98.4 86 18 143/83 95 12/24/16 07:00 95 Room Air 12/24/16 06:12 94 12/24/16 05:02 90 12/24/16 04:46 87 12/24/16 03:45 98.2 60 16 140/76 98 12/24/16 03:00 97 Nasal Cannula 1.00 12/24/16 03:00 87 12/24/16 02:00 86 12/24/16 01:00 90 12/24/16 00:00 92 12/23/16 23:00 99.6 99 20 149/91 97 12/23/16 23:00 97 Nasal Cannula 1.00 12/23/16 23:00 99 12/23/16 22:00 104 12/23/16 21:00 96 12/23/16 20:30 Nasal Cannula 1.50 12/23/16 20:00 102 12/23/16 19:00 98.5 105 20 155/87 95 12/23/16 19:00 95 Nasal Cannula 1.00 12/23/16 19:00 109 12/23/16 18:00 101 12/23/16 17:00 102 12/23/16 16:19 Nasal Cannula 1.00 12/23/16 16:19 99.1 103 20 160/92 94 12/23/16 16:00 102 12/23/16 15:00 103 12/23/16 14:00 106 12/23/16 13:19 105 12/23/16 12:50 99.4 104 22 157/88 95 12/24/16 12/24/16 12/24/16 07:00 15:00 23:00 Intake Total 930 ml Output Total 600 ml Balance 330 ml Result Diagram: 12/23/1622612/23/16226 Laboratory Results Laboratory Tests Test 12/23/16 12/24/16 12/24/16 18:16 02:08 08:56 Activated Partial 37.5 SEC 50.2 SEC 41.8 SEC Thromboplast Time Culture Results Microbiology Date/Time Procedure Status Source Growth 12/23/16 11:06 Stool Occult Blood (LIS) - Final Complete Stool Stool HEMOCCULT NEGATIVE Administered Medications Medications (Trade) Dose Ordered Sig/Darrian Route PRN Reason Start Time Stop Time Status Last Admin Dose Admin Heparin Sodium (Porcine) 2500 units 2,500 units UNSCH PRN IV APTT 25 TO 39 12/21/16 03:30 12/23/16 21:05 Heparin Sodium/ Dextrose 250 ml @ 0 mls/hr TITRATE IV 12/20/16 21:30 12/24/16 05:13 Ceftriaxone Sodium 1000 mg/ Sodium Chloride 100 ml @ 200 mls/hr Q24H IV 12/21/16 22:00 12/23/16 22:32 Azithromycin/ Sodium Chloride (Zithromax Inj/ NS 250 ml Inj) 250 ml @ 250 mls/hr Q24H IV 12/21/16 21:00 12/23/16 21:05 Budesonide/ Formoterol Fumarate (Symbicort 160-4.5 Inh) 2 puff Q12HR INH 12/20/16 21:45 12/24/16 09:04 IV Flush (NS Flush) 2 ml BID FLUSH 12/21/16 09:00 12/23/16 21:04 Acetaminophen/ Hydrocodone Bitart ([place] 5-325 Mg) 1 tab Q4H PRN PO PAIN SCALE 3 TO 5 12/20/16 21:45 12/23/16 02:05 Morphine Sulfate (Morphine Inj) 2 mg Q3H PRN IV Pain 6-10 12/20/16 21:45 12/22/16 09:40 Ramipril (Altace) 1.25 mg DAILY PO 12/22/16 17:15 12/24/16 09:04 Objective Remarks GENERAL: Well appearing older female, sitting up in chair at bedside in no distress. SKIN: Warm and dry. HEAD: Normocephalic. EYES: No scleral icterus. No injection or drainage. NECK: Supple, trachea midline. CARDIOVASCULAR: +S1/S2. RESPIRATORY: Breath sounds equal bilaterally. No accessory muscle use. GASTROINTESTINAL: Abdomen soft, non-tender, nondistended. EXTREMITIES: No cyanosis NEUROLOGICAL: No obvious focal deficit. Awake, alert, and oriented x3. Assessment/Plan Problem List: (1) Pulmonary embolism Status: Acute Plan: 12/24: Start Eliquis today. She will be on 10mg twice daily for 7 days, followed by 5mg twice daily. Eliquis to be given within 2 hours of stopping heparin gtt. U/S, LE shows no DVT --will need anticoagulation x 1 year --If her shortness of breath gets worse then we will consult interventional radiologist for thrombolytics. Assessment 61y/o female with provoked PE. h/o CHF, EF 25-30% --CAD s/p CABG --h/o hypercholesterolemia --h/o HTN Attending Statement No sob , still has EAST NO CP continue heparin LVEF 25%. EAST is probably due to CHF. Await cardiology input. D/W RN to notify tobacco blender for the pending consult. start Eliquis when clear by cardiology ( ? may need procedure) The exam, history, and the medical decision-making described in the above note were completed with the assistance of the mid-level provider. I reviewed and agree with the findings presented. I attest that I had a [id number] encounter with the patient on the same day, and personally performed and documented my assessment and findings in the medical record. Problem Qualifiers (1) Pulmonary embolism: Qualified Code: I26.99 - Other acute pulmonary embolism without acute cor pulmonale Patria Andersen Dec 24, 2016 12:37 Deo Diaz MD Dec 24, 2016 21:38
--- NOTE | 2016-12-24 16:49 | HHI.PR ---
Subjective Remarks Follow up on bilateral large PE Patient resting comfortably in that she is off O2 nasal cannula resting, but she still getting short of breath on ambulation We will continue with heparin drip for now, will switch to elliquis once her symptoms totally improved Objective Vitals Vital Signs Date Time Temp Pulse Resp B/P Pulse Ox O2 Delivery O2 Flow Rate FiO2 12/24/16 16:00 101 12/24/16 15:00 97 Nasal Cannula 2.00 12/24/16 15:00 100 12/24/16 15:00 98.3 96 18 149/90 97 12/24/16 14:00 106 12/24/16 13:00 98 12/24/16 12:00 104 12/24/16 11:00 98.5 104 18 142/89 93 12/24/16 11:00 92 Nasal Cannula 2.00 12/24/16 11:00 92 12/24/16 08:00 88 12/24/16 07:00 94 12/24/16 07:00 98.4 86 18 143/83 95 12/24/16 07:00 95 Room Air 12/24/16 06:12 94 12/24/16 05:02 90 12/24/16 04:46 87 12/24/16 03:45 98.2 60 16 140/76 98 12/24/16 03:00 97 Nasal Cannula 1.00 12/24/16 03:00 87 12/24/16 02:00 86 12/24/16 01:00 90 12/24/16 00:00 92 12/23/16 23:00 99.6 99 20 149/91 97 12/23/16 23:00 97 Nasal Cannula 1.00 12/23/16 23:00 99 12/23/16 22:00 104 12/23/16 21:00 96 12/23/16 20:30 Nasal Cannula 1.50 12/23/16 20:00 102 12/23/16 19:00 98.5 105 20 155/87 95 12/23/16 19:00 95 Nasal Cannula 1.00 12/23/16 19:00 109 12/23/16 18:00 101 12/23/16 17:00 102 I/O 12/23/16 12/23/16 12/23/16 12/24/16 12/24/16 12/24/16 07:00 15:00 23:00 07:00 15:00 23:00 Intake Total 1034 ml 1961 ml 930 ml Output Total 1000 ml 2800 ml 600 ml Balance 34 ml -839 ml 330 ml Intake Oral 480 ml 1760 ml 480 ml IV Total 554 ml 201 ml 450 ml Output Urine Total 1000 ml 2800 ml 600 ml # Bowel Movements 1 Result Diagram: 12/23/1622612/23/16226 Objective Remarks GENERAL: This is a well-nourished, well-developed patient, in no apparent distress. SKIN: No rashes, warm and dry HEAD: Atraumatic. Normocephalic. EYES: Pupils equal round and reactive. Extraocular motions intact. No scleral icterus. ENT: Nose without bleeding, or drainage, Airway patent. NECK: Trachea midline. Supple CARDIOVASCULAR: Regular rate and rhythm without murmurs, gallops, or rubs. RESPIRATORY: Fair air entry bilaterally. No wheezes, rales, or rhonchi. GASTROINTESTINAL: Abdomen soft, non-tender, nondistended. Positive bowel sounds MUSCULOSKELETAL: Extremities without clubbing, cyanosis, or edema. Pedal pulses appreciated NEUROLOGICAL: Awake and alert. Moves all extremity. Normal speech.no focal neurological deficit A/P Problem List: (1) Pulmonary embolism ICD Code: I26.99 Status: Acute (2) PNA (pneumonia) ICD Code: J18.9 Status: Acute (3) Chest pain ICD Code: R07.9 Status: Acute (4) Renal insufficiency ICD Code: N28.9 Status: Acute Assessment and Plan 12/23/16: Continue current care, appreciate hematology recommendation, continue anticoagulation until symptom improved and switch to a liquids she will need one year, if symptom worsened or hemodynamically unstable will consider IR for thrombolytics, awaiting cardiology consult 12/24/16: Still getting short of breath on ambulation, will continue with heparin drip, will monitor her symptoms, check walking O2 sat will switch to elliquis when stable A/P: - Bilateral PE mostly provoked by a long traveling: c/o chest pain, non- productive cough x1 day, CXR w/ no acute findings, CTA Pulm w/ extensive bilateral PE, patchy consolidation and small bilateral effusions Likely secondary to extensive travel recently, no other risk factors noted. 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 precipitated by the bilateral large PE, starting SEDRICK inhibitor low dose, consult cardiology - PNA mostly CAP : CTA Pulm w/ bilateral patchy consolidation as above, continue Rocephin/Zithro , monitor clinical improvement - Chest Pain: Atypical. Pleuritic. Likely secondary to PNA/PE however h/o CAD, will r/o ACS. Initial trop negative, EKG w/ no acute ischemia. Check serial cardiac enzymes, NTG/Morphine prn. - KOLE: Creatinine improved 1.19-95, . U/a pending, IVF for hydration, personally reviewed BMP - DVT Prophylaxis: Heparin gtt for acute PE Problem Qualifiers (1) Pulmonary embolism: Qualified Code: I26.99 - Other acute pulmonary embolism without acute cor pulmonale Nani Harmon MD Dec 24, 2016 16:49
[2016-12-24] MEDS: APIXABAN 5 MG TABLET PO SCH (19:36)
[2016-12-24] MEDS: AZITHROMYCIN INJ 500 MG in SODIUM CHLOR 0.9% 250 ML INJ 250 ML IV SCH (19:37)
[2016-12-24] MEDS: cefTRIAXone INJ 1,000 MG in SODIUM CHLORIDE 0.9% INJ 100 ML IV SCH (22:35)
[2016-12-25] VITALS (26 sets, daily range): BP systolic 137–163; BP diastolic 81–91; PULSE 77–114; RESP 18–20; TEMP 97.8–98.8; O2SAT 92–98
[2016-12-25 05:13] LABS: AUTOMATED NEUTROPHIL # 6.3 TH/MM3 (1.8-7.7); BASOPHIL # 0.1 TH/MM3 (0-0.2); BASOPHIL % 0.7 % (0.0-2.0); EOSINOPHIL # 0.2 TH/MM3 (0-0.4); EOSINOPHIL % 2.1 % (0.0-4.0); HEMATOCRIT 38.7 % (35.0-46.0); HEMO FLAGS DIFF FINAL; LYMPH % 19.7 % (9.0-44.0); LYMPHOCYTE # 1.7 TH/MM3 (1.0-4.8); MEAN CELL VOLUME 87.9 FL (80.0-100.0); MEAN CORPUSCULAR HEMOGLOBIN 30.2 PG (27.0-34.0); MEAN CORPUSCULAR HGB CONC 34.4 % (32.0-36.0); MONO % 6.7 % (0.0-8.0); NEUT % 70.8 % (16.0-70.0); PLATELET COUNT 363 TH/MM3 (150-450); RED CELL DISTRIBUTION WIDTH 13.6 % (11.6-17.2); WHITE BLOOD COUNT 8.9 TH/MM3 (4.0-11.0)
[2016-12-25 05:18] LABS: APTT (PATIENT) 26.3 SEC (24.3-30.1)
[2016-12-25] MEDS: RAMIPRIL 1.25 MG CAP PO SCH (08:23)
[2016-12-25] MEDS: APIXABAN 5 MG TABLET PO SCH ×2 (08:23→20:47)
[2016-12-25] MEDS: BUDESONIDE-FORMOTEROL 160/4.5 MCG INHALER INH SCH ×2 (08:23→20:48)
[2016-12-25] MEDS: SODIUM CHLORIDE 0.9% FLUSH 5 ML FLUSH FLUSH SCH ×2 (08:23→20:47)
--- NOTE | 2016-12-25 09:41 | MB ---
cc: ANNE SAGASTUME DATE OF CONSULTATION 12/24/2016 DATE OF 1955 REASON FOR CONSULTATION LV systolic dysfunction. HISTORY OF PRESENT ILLNESS 61-year-old female with past medical history significant for coronary artery disease status post coronary artery bypass surgery in 1998, hypertension, hyperlipidemia that presented to the hospital with complaints of pleuritic chest pain, tachycardia, shortness of breath and dry cough in the setting of long traveling. She reports she was in her usual state of health when she left [place]. In the emergency department CT scan of the chest revealed extensive bilateral pulmonary emboli. The patient was admitted to telemetry cardiac unit for further management and evaluation. She was started on IV heparin. The patient denies any previous history of thromboembolic disease, malignancy or family history of thrombotic disease. Regarding her cardiac history, she reports she had a CABG in 1998 in the setting of a failed PCI which caused acute dissection of a coronary artery. She went into cardiogenic shock and went into emergent bypass surgery. At that time she remained in the hospital for several weeks. Currently she reports feeling better from te SOB. She denies shortness of breath or chest pain, palpitations, dizziness, lightheadedness, bleeding, melena, hematochezia, blurred vision. REVIEW OF SYSTEMS Negative except for what is mentioned in HPI. PAST MEDICAL HISTORY 1. Hypertension. 2. Hyperlipidemia. 3. Coronary artery disease. PAST SURGICAL HISTORY Coronary artery bypass surgery. ALLERGIES NO KNOWN DRUG ALLERGIES. MEDICATIONS 1. Ramipril. 2. Symbicort. 3. Coreg. 4. Rocephin. 5. Azithromycin. 6. Heparin. FAMILY HISTORY Noncontributory. SOCIAL HISTORY She denies alcohol use, tobacco use or illicit drug abuse. PHYSICAL EXAMINATION VITAL SIGNS: Temperature 98.3, respiratory rate 18, heart rate 89, blood pressure 149/90, O2 sat 97% on 2 liters nasal cannula. GENERAL: She is alert, awake, oriented x3 in no acute distress. NECK: No JVD, no carotid bruits. CARDIOVASCULAR: Regular rate and rhythm. No murmurs, rubs or gallops appreciated. LUNGS: Clear to auscultation bilaterally. No wheezes or rhonchi or rales. ABDOMEN: Positive bowel sounds, soft, nontender, nondistended. EXTREMITIES: No cyanosis or edema, and pulses throughout. LABORATORY DATA CBC hemoglobin 12, hematocrit 34, platelet count 246. INR 0.9. Chemistries sodium 139, potassium 4.3, BUN 10, creatinine 0.88. Troponin less than 0.02. IMAGING STUDIES CTA showing extensive bilateral pulmonary emboli. Lower extremity ultrasound showing no DVT. Chest x-ray has no acute cardiopulmonary process. EKG sinus tachycardia with nonspecific ST changes. Echocardiogram shows a systolic dysfunction with an estimated ejection fraction of 30%. ASSESSMENT/PLAN 61-year-old female with known history of coronary artery disease, hypertension, hyperlipidemia admitted with an acute extensive bilateral pulmonary emboli in the setting of prolonged travel. Echocardiogram done here shows depressed LV systolic function. However, she does not have signs of acute heart failure exacerbation on physical examination. Given her history of traumatic coronary interventions which was followed by emergent coronary bypass surgery, it seems reasonable to think that some the LV dysfunction is old. However, this has to be corroborated by outside records. In the other hand it seems that the primary problem is the PE thus no invasive or noninvasive ischemic workup is recommended at this time. In the case her status worsens from the SOB or hemodynamic standpoint , we could re-assess the need for direct pulmonary artery thrombolytics. RECOMMENDATIONS 1. Continue aggressive medical management for secondary prevention of coronary artery disease. 2. No cardiac workup at this time. 3. Continue pulmonary emboli treatment with IV anticoagulation transitioned to p.o. when more stable. 4. Continue telemetry monitoring. Thank you for the opportunity to take part in the care of this patient. Will be available on a p.r.n. basis for any further questions or concerns. MD MIKE Reyez/SILAS /6:11 PM /9:29 AM KAM
[2016-12-25] MEDS: CARVEDILOL 3.125 MG TAB PO SCH ×2 (10:48→20:47)
[2016-12-25] MEDS: LISINOPRIL 5 MG TAB PO SCH ×2 (10:48→20:47)
--- NOTE | 2016-12-25 14:22 | HHI.PR ---
Subjective Remarks Patient sitting on the chair, having O2 nasal cannula on Reported still feeling short of breath when she walk around We will keep on heparin drip until her symptoms resolved completely otherwise we may need IR thrombolytics Objective Vitals Vital Signs Date Time Temp Pulse Resp B/P Pulse Ox O2 Delivery O2 Flow Rate FiO2 12/25/16 13:00 102 12/25/16 12:28 92 Nasal Cannula 1.00 12/25/16 12:11 105 12/25/16 11:00 98.2 109 18 147/91 92 12/25/16 11:00 107 12/25/16 10:04 114 12/25/16 09:07 111 12/25/16 08:07 98.0 93 18 163/91 93 12/25/16 08:06 93 Nasal Cannula 1.00 12/25/16 08:06 95 12/25/16 07:00 104 12/25/16 06:07 85 12/25/16 05:07 98 12/25/16 04:02 87 12/25/16 03:45 98.8 98 20 138/91 98 12/25/16 03:44 98 Nasal Cannula 1.00 12/25/16 03:00 77 12/25/16 02:00 82 12/25/16 01:00 86 12/25/16 00:00 90 12/24/16 23:00 97.2 91 19 142/83 99 12/24/16 23:00 88 12/24/16 23:00 99 Nasal Cannula 1.00 12/24/16 22:00 88 12/24/16 21:05 96 Nasal Cannula 1.50 12/24/16 21:00 90 12/24/16 20:00 98 12/24/16 19:00 95 12/24/16 19:00 96 Nasal Cannula 1.00 12/24/16 19:00 98.2 95 18 142/83 96 12/24/16 18:00 96 12/24/16 17:00 89 12/24/16 16:00 101 12/24/16 15:00 97 Nasal Cannula 2.00 12/24/16 15:00 100 12/24/16 15:00 98.3 96 18 149/90 97 I/O 12/24/16 12/24/16 12/24/16 12/25/16 12/25/16 12/25/16 07:00 15:00 23:00 07:00 15:00 23:00 Intake Total 930 ml 840 ml 710 ml Output Total 600 ml 900 ml Balance 330 ml 840 ml -190 ml Intake Oral 480 ml 840 ml 360 ml IV Total 450 ml 350 ml Output Urine Total 600 ml 900 ml # Voids 3 # Bowel Movements 1 Result Diagram: 12/25/16 0440 12/23/16 0227 Objective Remarks GENERAL: This is a well-nourished, well-developed patient, in no apparent distress. SKIN: No rashes, warm and dry HEAD: Atraumatic. Normocephalic. EYES: Pupils equal round and reactive. Extraocular motions intact. No scleral icterus. ENT: Nose without bleeding, or drainage, Airway patent. NECK: Trachea midline. Supple CARDIOVASCULAR: Regular rate and rhythm without murmurs, gallops, or rubs. RESPIRATORY: Fair air entry bilaterally. No wheezes, rales, or rhonchi. GASTROINTESTINAL: Abdomen soft, non-tender, nondistended. Positive bowel sounds MUSCULOSKELETAL: Extremities without clubbing, cyanosis, or edema. Pedal pulses appreciated NEUROLOGICAL: Awake and alert. Moves all extremity. Normal speech.no focal neurological deficit A/P Problem List: (1) Pulmonary embolism ICD Code: I26.99 Status: Acute (2) PNA (pneumonia) ICD Code: J18.9 Status: Acute (3) Chest pain ICD Code: R07.9 Status: Acute (4) Renal insufficiency ICD Code: N28.9 Status: Acute Assessment and Plan 12/23/16: Continue current care, appreciate hematology recommendation, continue anticoagulation until symptom improved and switch to a liquids she will need one year, if symptom worsened or hemodynamically unstable will consider IR for thrombolytics, awaiting cardiology consult 12/24/16: Still getting short of breath on ambulation, will continue with heparin drip, will monitor her symptoms, check walking O2 sat will switch to elliquis when stable 12/25/16: Still feeling dyspnea on exertion, continue heparin drip monitor closely , if become hemodynamically unstable will need IR for thrombolysis A/P: - Bilateral PE mostly provoked by a long traveling: c/o chest pain, non- productive cough x1 day, CXR w/ no acute findings, CTA Pulm w/ extensive bilateral PE, patchy consolidation and small bilateral effusions Likely secondary to extensive travel recently, no other risk factors noted. 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 precipitated by the bilateral large PE, starting SEDRICK inhibitor low dose, consult cardiology - PNA mostly CAP : CTA Pulm w/ bilateral patchy consolidation as above, continue Rocephin/Zithro , monitor clinical improvement - Chest Pain: Atypical. Pleuritic. Likely secondary to PNA/PE however h/o CAD, will r/o ACS. Initial trop negative, EKG w/ no acute ischemia. Check serial cardiac enzymes, NTG/Morphine prn. - KOLE: Creatinine improved 1.19-95, . U/a pending, IVF for hydration, personally reviewed BMP - DVT Prophylaxis: Heparin gtt for acute PE Problem Qualifiers (1) Pulmonary embolism: Qualified Code: I26.99 - Other acute pulmonary embolism without acute cor pulmonale Nani Harmon MD Dec 25, 2016 14:22
[2016-12-25] MEDS: AZITHROMYCIN INJ 500 MG in SODIUM CHLOR 0.9% 250 ML INJ 250 ML IV SCH (20:46)
[2016-12-25] MEDS: cefTRIAXone INJ 1,000 MG in SODIUM CHLORIDE 0.9% INJ 100 ML IV SCH (20:46)
--- NOTE | 2016-12-25 22:27 | PD.ONC.PN ---
Subjective Subjective Remarks less sob no cp Objective Data Date Time Temp Pulse Resp B/P Pulse Ox O2 Delivery O2 Flow Rate FiO2 12/25/16 20:08 98 Nasal Cannula 1.00 12/25/16 18:00 100 12/25/16 16:00 96 12/25/16 15:00 97.8 98 18 145/83 97 12/25/16 15:00 102 12/25/16 15:00 97 Nasal Cannula 1.00 12/25/16 14:00 102 12/25/16 13:00 102 12/25/16 12:28 92 Nasal Cannula 1.00 12/25/16 12:11 105 12/25/16 11:00 98.2 109 18 147/91 92 12/25/16 11:00 107 12/25/16 10:04 114 12/25/16 09:07 111 12/25/16 08:07 98.0 93 18 163/91 93 12/25/16 08:06 93 Nasal Cannula 1.00 12/25/16 08:06 95 12/25/16 07:00 104 12/25/16 06:07 85 12/25/16 05:07 98 12/25/16 04:02 87 12/25/16 03:45 98.8 98 20 138/91 98 12/25/16 03:44 98 Nasal Cannula 1.00 12/25/16 03:00 77 12/25/16 02:00 82 12/25/16 01:00 86 12/25/16 00:00 90 12/24/16 23:00 97.2 91 19 142/83 99 12/24/16 23:00 88 12/24/16 23:00 99 Nasal Cannula 1.00 12/25/16 12/25/16 12/25/16 07:00 15:00 23:00 Intake Total 710 ml 480 ml Output Total 900 ml Balance -190 ml 480 ml Result Diagram: 12/25/16 0440 12/23/16 0227 Laboratory Results Laboratory Tests Test 12/25/16 04:40 White Blood Count 8.9 TH/MM3 Red Blood Count 4.40 MIL/MM3 Hemoglobin 13.3 GM/DL Hematocrit 38.7 % Mean Corpuscular Volume 87.9 FL Mean Corpuscular Hemoglobin 30.2 PG Mean Corpuscular Hemoglobin 34.4 % Concent Red Cell Distribution Width 13.6 % Platelet Count 363 TH/MM3 Mean Platelet Volume 8.7 FL Neutrophils (%) (Auto) 70.8 % Lymphocytes (%) (Auto) 19.7 % Monocytes (%) (Auto) 6.7 % Eosinophils (%) (Auto) 2.1 % Basophils (%) (Auto) 0.7 % Neutrophils # (Auto) 6.3 TH/MM3 Lymphocytes # (Auto) 1.7 TH/MM3 Monocytes # (Auto) 0.6 TH/MM3 Eosinophils # (Auto) 0.2 TH/MM3 Basophils # (Auto) 0.1 TH/MM3 CBC Comment DIFF FINAL Differential Comment Activated Partial 26.3 SEC Thromboplast Time Culture Results Microbiology Date/Time Procedure Status Source Growth 12/23/16 11:06 Stool Occult Blood (LIS) - Final Complete Stool Stool HEMOCCULT NEGATIVE Administered Medications Medications (Trade) Dose Ordered Sig/Darrian Route PRN Reason Start Time Stop Time Status Last Admin Dose Admin Ceftriaxone Sodium 1000 mg/ Sodium Chloride 100 ml @ 200 mls/hr Q24H IV 12/21/16 22:00 12/25/16 20:46 Azithromycin/ Sodium Chloride (Zithromax Inj/ NS 250 ml Inj) 250 ml @ 250 mls/hr Q24H IV 12/21/16 21:00 12/25/16 20:46 Budesonide/ Formoterol Fumarate (Symbicort 160-4.5 Inh) 2 puff Q12HR INH 12/20/16 21:45 12/25/16 20:48 IV Flush (NS Flush) 2 ml BID FLUSH 12/21/16 09:00 12/25/16 20:47 Acetaminophen/ Hydrocodone Bitart (Maribel 5-325 Mg) 1 tab Q4H PRN PO PAIN SCALE 3 TO 5 12/20/16 21:45 12/23/16 02:05 Morphine Sulfate (Morphine Inj) 2 mg Q3H PRN IV Pain 6-10 12/20/16 21:45 12/22/16 09:40 Apixaban (Eliquis) 10 mg BID PO 12/24/16 21:00 12/25/16 20:47 Lisinopril (Prinivil) 5 mg Q12HR PO 12/25/16 10:15 12/25/16 20:47 Carvedilol (Coreg) 3.125 mg Q12HR PO 12/25/16 10:15 12/25/16 20:47 Objective Remarks GENERAL: Well-nourished, well-developed patient. SKIN: Warm and dry. HEAD: Normocephalic. EYES: No scleral icterus. No injection or drainage. NECK: Supple, trachea midline. No JVD or lymphadenopathy. LYMPHATIC: No adenopathy. CARDIOVASCULAR: Regular rate and rhythm without murmurs. RESPIRATORY: Breath sounds equal bilaterally. No accessory muscle use. GASTROINTESTINAL: Abdomen soft, non-tender, nondistended. EXTREMITIES: No cyanosis, or edema. NEUROLOGICAL: No obvious focal deficit. Awake, alert, and oriented x3. PSYCHIATRIC: Appropriate mood and affect; insight and judgment normal. Assessment/Plan Problem List: (1) Pulmonary embolism Status: Acute Plan: 12/25 Cardiology note reviewed. No procedure is planned. Continue eliquis. OK to d/c home tomorrow if remains stable 12/24: Start Eliquis today. She will be on 10mg twice daily for 7 days, followed by 5mg twice daily. Eliquis to be given within 2 hours of stopping heparin gtt. U/S, LE shows no DVT --will need anticoagulation x 1 year --If her shortness of breath gets worse then we will consult interventional radiologist for thrombolytics. Assessment 61y/o female with provoked PE. h/o CHF, EF 25-30% --CAD s/p CABG --h/o hypercholesterolemia --h/o HTN Problem Qualifiers (1) Pulmonary embolism: Qualified Code: I26.99 - Other acute pulmonary embolism without acute cor pulmonale Deo Diaz MD Dec 25, 2016 22:27
[2016-12-26] VITALS (20 sets, daily range): BP systolic 139–174; BP diastolic 83–101; PULSE 82–114; RESP 20; TEMP 98–98.4; O2SAT 94–98
[2016-12-26 06:33] LABS: HEMATOCRIT 39.6 % (35.0-46.0); MEAN CELL VOLUME 87.9 FL (80.0-100.0); MEAN CORPUSCULAR HEMOGLOBIN 29.9 PG (27.0-34.0); PLATELET COUNT 429 TH/MM3 (150-450); RED BLOOD COUNT 4.51 MIL/MM3 (4.00-5.30); RED CELL DISTRIBUTION WIDTH 13.6 % (11.6-17.2); REVIEW FLAG FINAL; WHITE BLOOD COUNT 10.2 TH/MM3 (4.0-11.0)
[2016-12-26 06:47] LABS: APTT (PATIENT) 26.9 SEC (24.3-30.1)
[2016-12-26] MEDS: LISINOPRIL 5 MG TAB PO SCH (08:33)
[2016-12-26] MEDS: APIXABAN 5 MG TABLET PO SCH (08:33)
[2016-12-26] MEDS: CARVEDILOL 3.125 MG TAB PO SCH (08:33)
[2016-12-26] MEDS: SODIUM CHLORIDE 0.9% FLUSH 5 ML FLUSH FLUSH SCH (08:33)
[2016-12-26] MEDS: BUDESONIDE-FORMOTEROL 160/4.5 MCG INHALER INH SCH (08:34)
[2016-12-26] MEDS ORDERED: APIX5TAB PO ×2 (09:16→10:45)
[2016-12-26] MEDS ORDERED: IPRASOL NEB (09:16)
[2016-12-26] MEDS ORDERED: CARV3.125 PO (09:16)
[2016-12-26] MEDS ORDERED: SYMB160A INH (09:16)
[2016-12-26] MEDS ORDERED: LISI-519 PO ×2 (09:16→15:34)
--- NOTE | 2016-12-26 10:45 | HHI.PR ---
Subjective Remarks Resting comfortably in bed without oxygen nasal cannula, denied chest pain short of breath She was switched yesterday to elliquis by hematology, will check O2 walk test if she past and has no symptoms, we will discharge her on elliquis per hematology recommendation Her heart rate and blood pressure much improved on this and the lisinopril and Coreg Objective Vitals Vital Signs Date Time Temp Pulse Resp B/P Pulse Ox O2 Delivery O2 Flow Rate FiO2 12/26/16 08:00 96 Room Air 12/26/16 08:00 98.0 97 20 145/84 96 12/26/16 07:00 84 12/26/16 06:13 92 12/26/16 05:00 90 12/26/16 04:03 98.2 89 139/83 98 12/26/16 04:03 Nasal Cannula 1.00 12/26/16 04:00 82 12/26/16 03:00 82 12/26/16 02:00 88 12/26/16 01:00 86 12/26/16 00:00 88 12/25/16 23:00 Nasal Cannula 1.00 12/25/16 23:00 98.0 86 137/81 98 12/25/16 23:00 96 12/25/16 22:00 96 12/25/16 21:00 92 12/25/16 20:08 98 Nasal Cannula 1.00 12/25/16 20:00 110 12/25/16 19:00 94 12/25/16 19:00 Nasal Cannula 1.00 12/25/16 19:00 98.3 95 148/82 97 12/25/16 18:00 100 12/25/16 16:00 96 12/25/16 15:00 97.8 98 18 145/83 97 12/25/16 15:00 102 12/25/16 15:00 97 Nasal Cannula 1.00 12/25/16 14:00 102 12/25/16 13:00 102 12/25/16 12:28 92 Nasal Cannula 1.00 12/25/16 12:11 105 12/25/16 11:00 98.2 109 18 147/91 92 12/25/16 11:00 107 I/O 12/25/16 12/25/16 12/25/16 12/26/16 12/26/16 12/26/16 07:00 15:00 23:00 07:00 15:00 23:00 Intake Total 710 ml 480 ml 240 ml Output Total 900 ml Balance -190 ml 480 ml 240 ml Intake Oral 360 ml 480 ml 240 ml IV Total 350 ml Output Urine Total 900 ml # Voids 3 4 # Bowel Movements 3 Result Diagram: 12/26/16 0455 12/23/16 0227 Objective Remarks GENERAL: This is a well-nourished, well-developed patient, in no apparent distress. SKIN: No rashes, warm and dry HEAD: Atraumatic. Normocephalic. EYES: Pupils equal round and reactive. Extraocular motions intact. No scleral icterus. ENT: Nose without bleeding, or drainage, Airway patent. NECK: Trachea midline. Supple CARDIOVASCULAR: Regular rate and rhythm without murmurs, gallops, or rubs. RESPIRATORY: Fair air entry bilaterally. No wheezes, rales, or rhonchi. GASTROINTESTINAL: Abdomen soft, non-tender, nondistended. Positive bowel sounds MUSCULOSKELETAL: Extremities without clubbing, cyanosis, or edema. Pedal pulses appreciated NEUROLOGICAL: Awake and alert. Moves all extremity. Normal speech.no focal neurological deficit A/P Problem List: (1) Pulmonary embolism ICD Code: I26.99 Status: Acute (2) PNA (pneumonia) ICD Code: J18.9 Status: Acute (3) Chest pain ICD Code: R07.9 Status: Acute (4) Renal insufficiency ICD Code: N28.9 Status: Acute Assessment and Plan 12/23/16: Continue current care, appreciate hematology recommendation, continue anticoagulation until symptom improved and switch to a liquids she will need one year, if symptom worsened or hemodynamically unstable will consider IR for thrombolytics, awaiting cardiology consult 12/24/16: Still getting short of breath on ambulation, will continue with heparin drip, will monitor her symptoms, check walking O2 sat will switch to elliquis when stable 12/25/16: Still feeling dyspnea on exertion, continue heparin drip monitor closely , if become hemodynamically unstable will need IR for thrombolysis 12/26/16: Switch to elliquis yesterday by hematology, check O2 walk test, if she' ll pass and no symptoms will discharge home to follow up with Dr. Cortes as an outpatient, left lower extremity ultrasound negative for DVT A/P: - Bilateral PE mostly provoked by a long traveling: c/o chest pain, non- productive cough x1 day, CXR w/ no acute findings, CTA Pulm w/ extensive bilateral PE, patchy consolidation and small bilateral effusions Likely secondary to extensive travel recently, no other risk factors noted. 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 precipitated by the bilateral large PE, starting SEDRICK inhibitor low dose, consult cardiology - PNA mostly CAP : CTA Pulm w/ bilateral patchy consolidation as above, continue Rocephin/Zithro , monitor clinical improvement - Chest Pain: Atypical. Pleuritic. Likely secondary to PNA/PE however h/o CAD, will r/o ACS. Initial trop negative, EKG w/ no acute ischemia. Check serial cardiac enzymes, NTG/Morphine prn. - KOLE: Creatinine improved 1.19-95, . U/a pending, IVF for hydration, personally reviewed BMP - DVT Prophylaxis: Heparin gtt for acute PE Problem Qualifiers (1) Pulmonary embolism: Qualified Code: I26.99 - Other acute pulmonary embolism without acute cor pulmonale Nani Harmon MD Dec 26, 2016 10:45
--- NOTE | 2016-12-26 10:48 | HHI.DS ---
Discharge Summary Admission Date Dec 20, 2016 at 21:31 Discharge Date: Dec 26, 2016 Admitting Diagnosis pe (1) Pulmonary embolism ICD Code: I26.99 (2) PNA (pneumonia) ICD Code: J18.9 (3) Chest pain ICD Code: R07.9 (4) Renal insufficiency ICD Code: N28.9 Procedures None Brief History - From Admission This is a 61-year-old female with a PMH of HTN, Hyperlipidemia and CAD s/p CABG who presented to the ER w/ complaints of chest pain x1 day w/ associated non- productive cough. Notes chest pain worse w/ inspiration. Denies fever, chills or sick contacts. No recent cardiac intervention, does not follow w/ Cardiology as outpatient. On arrival, BP 148/95, HR 120, O2 sat 94% on RA, Afebrile. WBC 15.4. Creatinine 1.19, no previous labs for comparison. Trop 0.02, EKG w/ no acute ischemia. D-dimer 2.69. CXR with no acute findings. CTA Pulm w/ extensive bilateral pulmonary emboli, patchy consolidation and small bilateral effusions. No h/o DVT/PE in the past. Does note recent travel to multiple cities via plane, visiting from [place]. No recent surgical intervention, no tobacco abuse. Started on Heparin gtt in ER. CBC/BMP: 12/26/16 0455 12/23/16 0227 Significant Findings Laboratory Tests Test 12/23/16 12/23/16 12/24/16 12/24/16 11:17 18:16 02:08 08:56 Activated Partial 36.2 SEC 37.5 SEC 50.2 SEC 41.8 SEC Thromboplast Time (24.3-30.1) (24.3-30.1) (24.3-30.1) (24.3-30.1) Test 12/25/16 04:40 Neutrophils (%) (Auto) 70.8 % (16.0-70.0) PE at Discharge GENERAL: This is a well-nourished, well-developed patient, in no apparent distress. SKIN: No rashes, warm and dry HEAD: Atraumatic. Normocephalic. EYES: Pupils equal round and reactive. Extraocular motions intact. No scleral icterus. ENT: Nose without bleeding, or drainage, Airway patent. NECK: Trachea midline. Supple CARDIOVASCULAR: Regular rate and rhythm without murmurs, gallops, or rubs. RESPIRATORY: Fair air entry bilaterally. No wheezes, rales, or rhonchi. GASTROINTESTINAL: Abdomen soft, non-tender, nondistended. Positive bowel sounds MUSCULOSKELETAL: Extremities without clubbing, cyanosis, or edema. Pedal pulses appreciated NEUROLOGICAL: Awake and alert. Moves all extremity. Normal speech.no focal neurological deficit Hospital Course 61 years old female admitted for Bilateral PE mostly provoked by a long traveling c/o chest pain, nonproductive cough x1 day, CXR w/ no acute findings , CTA Pulm w/ extensive bilateral PE, patchy consolidation and small bilateral effusions Likely secondary to extensive travel recently, no other risk factors noted. Continue Heparin gtt Telemetry, DuoNeb prn/Symbicort for possible bronchospasm from PE, We'll consult hematology, 2D echo ordered which showed reduced systolic ejection fraction 25-30% ischemic, patient started on Coreg and lisinopril, cardiology consulted did not recommend ischemic workup at this point, recommending continuing medical optimization, heparin continue and then switched to elliquis as recommended by dump grader who stated to anticoagulation until symptom improved and switch to a liquids she will need one year, if symptom worsened or hemodynamically unstable to consider IR for thrombolytics, As mentioned above Systolic cardiomyopathy EF 25-30% Unknown acute versus chronic, starting SEDRICK inhibitor low dose, consult cardiology PNA mostly CAP CTA Pulm w/ bilateral patchy consolidation as above, continue Rocephin/Zithro , monitor clinical improvement Chest Pain Atypical. Pleuritic. Likely secondary to PNA/PE however h/o CAD, will r/o ACS. Initial trop negative, EKG w/ no acute ischemia. Check serial cardiac enzymes, NTG/Morphine prn. KOLE improved later gradually DVT Prophylaxis Heparin gtt for acute PE later switched to elliquis Daily detailed hospital course 12/23/16: Continue current care, appreciate hematology recommendation, awaiting cardiology consult 12/24/16: Still getting short of breath on ambulation, will continue with heparin drip, will monitor her symptoms, check walking O2 sat will switch to elliquis when stable 12/25/16: Still feeling dyspnea on exertion, continue heparin drip monitor closely , if become hemodynamically unstable will need IR for thrombolysis, Switch to elliquis yesterday by hematology, On 12/26/16: Patient seems to be stable I work closely with the nurse on monitoring the patient today, we did O2 walk test,Pt walked all of the 6 mins with no need to stop or receive O2. Pt's SPO2 ranged from 93% to 98% during walk, felt no dizziness or SOB. We will proceed with discharge on elliquis as recommended by Dr. Cortes to follow up with him as an out patient Adhp-mh-[id number] encounter performed with the patient on discharge day, as well as physical exam, summary of hospitalization course and postdischarge plan has been D/W the patient. D/W nurse Discharge medications reviewed and printed and signed, post discharge follow up visit with PCP and other specialist as well as Brief hospital course and discharge summary has been placed. Pt Condition on Discharge: Good Discharge Disposition: Discharge Home Discharge Time: > 30 minutes Discharge Instructions DIET: Follow Instructions for: Heart Healthy Diet Fluid Restrictions: 1800cc/day Activities you can perform: Weight Bearing as Mark Follow up Referrals: Oncology - 2 Weeks with Deo Diaz MD New Medications: Apixaban (Eliquis) 5 Mg Tab 5 MG PO BID Begin after completion of Eliquis 10mg PO BID Blood Clot Prevention #60 Ref 0 TAB Apixaban (Eliquis) 5 Mg Tab 10 MG PO BID pe #12 TAB Budesonide-Formoterol Inh (Symbicort Inh) 160-4.5 Mcg/Act Aero 2 PUFF INH Q12HR copd #1 INHALER Carvedilol (Coreg) 3.125 Mg Tab 3.125 MG PO Q12HR chf #60 TAB Ipratropium-Albuterol Neb (Duoneb) 0.5-2.5 Mg/3 Ml Neb 1 AMPULE NEB Q4HR NEB PRN SOB/WHEEZING #10 ML Lisinopril (Lisinopril) 5 Mg Tab 10 MG PO DAILY chf #30 TAB Nani Harmon MD Dec 26, 2016 10:48
--- NOTE | 2016-12-26 11:25 | PD.ONC.PN ---
Subjective Subjective Remarks Afebrile overnight. Patient being discharged today. She denies dyspnea. No chest pain. Objective Data Date Time Temp Pulse Resp B/P Pulse Ox O2 Delivery O2 Flow Rate FiO2 12/26/16 10:56 97 Nasal Cannula 21 12/26/16 08:00 96 Room Air 12/26/16 08:00 98.0 97 20 145/84 96 12/26/16 07:00 84 12/26/16 06:13 92 12/26/16 05:00 90 12/26/16 04:03 98.2 89 139/83 98 12/26/16 04:03 Nasal Cannula 1.00 12/26/16 04:00 82 12/26/16 03:00 82 12/26/16 02:00 88 12/26/16 01:00 86 12/26/16 00:00 88 12/25/16 23:00 Nasal Cannula 1.00 12/25/16 23:00 98.0 86 137/81 98 12/25/16 23:00 96 12/25/16 22:00 96 12/25/16 21:00 92 12/25/16 20:08 98 Nasal Cannula 1.00 12/25/16 20:00 110 12/25/16 19:00 94 12/25/16 19:00 Nasal Cannula 1.00 12/25/16 19:00 98.3 95 148/82 97 12/25/16 18:00 100 12/25/16 16:00 96 12/25/16 15:00 97.8 98 18 145/83 97 12/25/16 15:00 102 12/25/16 15:00 97 Nasal Cannula 1.00 12/25/16 14:00 102 12/25/16 13:00 102 12/25/16 12:28 92 Nasal Cannula 1.00 12/25/16 12:11 105 12/26/16 12/26/16 12/26/16 07:00 15:00 23:00 Intake Total 240 ml Balance 240 ml Result Diagram: 12/26/16 0455 12/23/16 0227 Laboratory Results Laboratory Tests Test 12/26/16 04:55 White Blood Count 10.2 TH/MM3 Red Blood Count 4.51 MIL/MM3 Hemoglobin 13.5 GM/DL Hematocrit 39.6 % Mean Corpuscular Volume 87.9 FL Mean Corpuscular Hemoglobin 29.9 PG Mean Corpuscular Hemoglobin 34.0 % Concent Red Cell Distribution Width 13.6 % Platelet Count 429 TH/MM3 Mean Platelet Volume 8.5 FL Activated Partial 26.9 SEC Thromboplast Time Administered Medications Medications (Trade) Dose Ordered Sig/Darrian Route PRN Reason Start Time Stop Time Status Last Admin Dose Admin Ceftriaxone Sodium 1000 mg/ Sodium Chloride 100 ml @ 200 mls/hr Q24H IV 12/21/16 22:00 12/25/16 20:46 Azithromycin/ Sodium Chloride (Zithromax Inj/ NS 250 ml Inj) 250 ml @ 250 mls/hr Q24H IV 12/21/16 21:00 12/25/16 20:46 Budesonide/ Formoterol Fumarate (Symbicort 160-4.5 Inh) 2 puff Q12HR INH 12/20/16 21:45 12/26/16 08:34 IV Flush (NS Flush) 2 ml BID FLUSH 12/21/16 09:00 12/26/16 08:33 Acetaminophen/ Hydrocodone Bitart (Beatrice 5-325 Mg) 1 tab Q4H PRN PO PAIN SCALE 3 TO 5 12/20/16 21:45 12/23/16 02:05 Morphine Sulfate (Morphine Inj) 2 mg Q3H PRN IV Pain 6-10 12/20/16 21:45 12/22/16 09:40 Apixaban (Eliquis) 10 mg BID PO 12/24/16 21:00 12/26/16 08:33 Lisinopril (Prinivil) 5 mg Q12HR PO 12/25/16 10:15 12/26/16 08:33 Carvedilol (Coreg) 3.125 mg Q12HR PO 12/25/16 10:15 12/26/16 08:33 Objective Remarks GENERAL: MIddle aged female, standing in room in [facility]. SKIN: Warm and dry. HEAD: Normocephalic. EYES: No scleral icterus. No injection or drainage. NECK: Supple, trachea midline. CARDIOVASCULAR: +S1/S2 RESPIRATORY: Breath sounds equal bilaterally. No accessory muscle use. GASTROINTESTINAL: Abdomen soft, non-tender, nondistended. EXTREMITIES: No cyanosis NEUROLOGICAL: awake and alert, normal speech. Assessment/Plan Problem List: (1) Pulmonary embolism Status: Acute Plan: 12/26: clear for discharge. patient lives in [place] and is planning on driving home after discharge. Counseled patient extensively on the importance of following up CELESTINA with her primary care physician or a pull over in [place]. I wrote her for Eliquis 5mg PO BID which she will need to begin after completing the 10mg PO BID--this was also discussed extensively. 12/25 Cardiology note reviewed. No procedure is planned. Continue eliquis. OK to d /c home tomorrow if remains stable 12/24: Start Eliquis today. She will be on 10mg twice daily for 7 days, followed by 5mg twice daily. Eliquis to be given within 2 hours of stopping heparin gtt. U/S, LE shows no DVT --will need anticoagulation x 1 year --If her shortness of breath gets worse then we will consult interventional radiologist for thrombolytics. Assessment 61y/o female with provoked PE. h/o CHF, EF 25-30% --CAD s/p CABG --h/o hypercholesterolemia --h/o HTN Attending Statement denies any SOB and EAST no problems with eliquis so far. ok to d/c sign off available prn. The exam, history, and the medical decision-making described in the above note were completed with the assistance of the mid-level provider. I reviewed and agree with the findings presented. I attest that I had a [id number] encounter with the patient on the same day, and personally performed and documented my assessment and findings in the medical record. Problem Qualifiers (1) Pulmonary embolism: Qualified Code: I26.99 - Other acute pulmonary embolism without acute cor pulmonale Chaya Muñoz Dec 26, 2016 11:25 Deo Diaz MD Dec 26, 2016 16:31
[2016-12-26] MEDS ORDERED: LISINOPRIL 20 MG TAB PO ONE (16:00)
[2016-12-26] MEDS ORDERED: ENALAPRILAT 1.25 MG/ML VIAL IV PUSH PRN (16:00)
[2016-12-26] MEDS ORDERED: AZITHROMYCIN 250 MG TAB PO SCH (21:00)
== END 2016-12-26 17:00 | disposition home or self-care (01) | DRG 175 ==
LOC: NEPE 19:05 → NEDA 21:31 → HCPC 23:13 → HCIN 12-21 17:54 → HCIS 12-25 16:34
PROVIDERS: ADMIT Hospitalist; ATTEND Hospitalist
DX: I26.99 Other pulmonary embolism without acute cor pulmonale (principal); J18.9 Pneumonia, unspecified organism; N17.9 Acute kidney failure, unspecified; I11.0 Hypertensive heart disease with heart failure; I50.20 Unspecified systolic (congestive) heart failure; I25.5 Ischemic cardiomyopathy; E78.00 Pure hypercholesterolemia, unspecified; I25.10 Atherosclerotic heart disease of native coronary artery without angina pectoris; Z95.1 Presence of aortocoronary bypass graft
CPT/HCPCS: 71010; 71275; 76937; 80048; 80053; 81001; 82272; 82550; 83690; 83735; 84484; 85025; 85027; 85379; 85610; 85730; 87040; 93005; 93306; 93970; 94620; 96360; J0456; J0696; J1644; J2270; J7040; J7050; Q9967